=== PATIENT | male | born 1955 | race Caucasian/White ===

== ENCOUNTER → 2019-04-29 12:03 | Outpatient (CLI) | payer MEDICARE, SELFPAY ==
[2019-04-29 10:54] VITALS: BMI 43.2
[2019-04-29 13:45] LABS: Thyroid Stim Hormone (TSH) 1.65 uIU/mL (0.358-3.74)
== END ==
PROVIDERS: Family Provider Internal Medicine; PCP Internal Medicine; Referring Provider Internal Medicine Cardiovascular Disease; Visit Provider Internal Medicine Cardiovascular Disease
DX: I48.91 Unspecified atrial fibrillation (principal)
CPT/HCPCS: 36415; 84436; 84443

== ENCOUNTER → 2019-05-12 12:39 | Outpatient (CLI) | payer MEDICARE, SELFPAY ==
[2019-04-29 10:54] VITALS: BMI 43.2
--- NOTE | 2019-05-12 12:42 | ECHOCS_ITS ---
Reason For Study: Afib Procedure This was a 2D Doppler, Color Flow transthoracic echocardiogram. The study was technically difficult. Contrast injection was performed. Exam performed in department. Left Ventricle Normal size and thickness. The estimated ejection fraction is 65 %. Unable to assess diastolic dysfunction due to arrhythmia. No regional wall motion abnormalities noted. Right Ventricle Mildly dilated right ventricle. Normal systolic function. Atria Normal left atrium. Normal right atrium. Normal atrial septum. Mitral Valve The mitral valve is structurally normal. No prolapse or stenosis seen. Trivial mitral valve insufficiency. Tricuspid Valve Normal tricuspid valve. Trivial tricuspid valve insufficiency. Right ventricular systolic pressure estimated to be 36 mmHg. Mild pulmonary hypertension. Aortic Valve Normal aortic valve. Trisinus/trileaflet aortic valve. Pulmonic Valve The pulmonic valve is not well visualized. Great Vessels Normal aortic root. Normal arch. Normal inferior vena cava. Inferior vena cava collapse with sniff. Pericardium/Pleural No pericardial effusion. Medication 22 gauge I.V. with prn adaptor inserted into right arm. Diluted definity 4ml given slow IV push to enhance endocardial definition. MMode/2D Measurements & Calculations LVIDd: 4.3 cm IVSd: 1.2 cm LA dimension: 4.0 cm LVIDs: 3.0 cm LVPWd: 1.3 cm FS: 30.1 % LAV(MOD-bp): 60.2 ml LA A4 area: 20.2 cm2 LAV(MOD-bp) Indexed: 25.8 ml/m2 LAV(MOD-sp2): 63.4 ml LAV(MOD-sp4): 58.0 ml Time Measurements MV dec time: 0.17 sec Doppler Measurements & Calculations MV E max kacie: 82.5 cm/sec Ao V2 max: 82.3 cm/sec LV V1 max: 76.9 cm/sec MV A max kacie: 26.7 cm/sec Ao max P.7 mmHg LV V1 max P.4 mmHg MV E/A: 3.1 Ao V2 mean: 61.8 cm/sec LV V1 mean P.3 mmHg Ao mean P.6 mmHg LV V1 mean: 52.7 cm/sec Ao V2 VTI: 15.9 cm LV V1 VTI: 13.0 cm Interpretation Summary The estimated ejection fraction is 65 %. Unable to assess diastolic dysfunction due to arrhythmia. Mildly dilated right ventricle. Trivial mitral valve insufficiency. Trivial tricuspid valve insufficiency. Right ventricular systolic pressure estimated to be 36 mmHg. Mild pulmonary hypertension. Pt appears to be in atrial fibrillation. The study was technically difficult. Contrast injection was performed. There is no comparison study available. Ordering Physician: Yann Patrick Referring Physician: Lin Carbone Performed By: Gio Puentes RCS
== END ==
PROVIDERS: Family Provider Internal Medicine; PCP Internal Medicine; Referring Provider Internal Medicine Cardiovascular Disease; Visit Provider Internal Medicine Cardiovascular Disease
DX: Z01.810 Encounter for preprocedural cardiovascular examination (principal); I48.91 Unspecified atrial fibrillation; I27.20 Pulmonary hypertension, unspecified; I11.9 Hypertensive heart disease without heart failure; G47.33 Obstructive sleep apnea (adult) (pediatric)
CPT/HCPCS: 93306; Q9957; A4216; C8929

== ENCOUNTER → 2019-05-16 12:18 | Outpatient (CLI) | payer MEDICARE, SELFPAY ==
[2019-04-29 10:54] VITALS: BMI 43.2
--- NOTE | 2019-05-16 12:20 | STEWCON_ITS ---
Version 2 Reason For Study: AFIB/FLUTTER Stress Results Protocol: Dobutamine with definity Maximum Predicted HR: 154 bpm Target HR: 131 bpm % Maximum Predicted HR: 90 % DurationHeart Rate Stage (mm:ss) (bpm) BP Dose Comment BASELINE 116 139/100 2 CC DEFINITY STAGE 1 3:00 139 / 10.00 STAGE 2 1:24 134 149/7920.001 CC DEFINITY RECOVERY 112 126/82 2 CC DEFINITY Stress Duration: 4:24 mm:ss Maximum Stress HR: 139 bpm Baseline Echocardiogram Findings The estimated ejection fraction is 65 %. Stress Echo Wall motion Data Resting WM Intermediate WM Stress WM Resting Wall Motion Wall Motion Stress No regional wall motion No regional wall motion abnormalities noted. abnormalities noted. EKG Data The baseline ECG displays normal sinus rhythm. The patient exercised according to the regular Zechariah protocol for a total duration of 4:24. The maximum heart rate attained was 164 beats per minute. This was 106% of maximum predicted heart rate. The patient exercised into stage 2 of the Zechariah protocol. At peak exercise, upsloping ST changes only were noted, which did not meet the criteria for ischemia. No clinical angina was noted. Interpretation Summary The estimated ejection fraction is 65 %. Normal, adequate, dobutamine echocardiogram. Negative for ischemia by EKG and echocardiographic criteria. Baseline atrial fibrillation, with controlled ventricular response. No anginal symptoms noted. No additional arrhythmias noted. Final LVEF is 75%. Patient did develop subtle downsloping ST segment depression at peak exercise which persisted until 13 minutes 50 seconds into recovery. Decreased sensitivity due to poor echo windows requiring Definity agent. Test terminated due to attainment target heart rate. No complications. The study was technically difficult. Contrast injection was performed. Ordering Physician: Yann Patrick Referring Physician: Yann Patrick Performed By: Gio Puentes RCS
== END ==
PROVIDERS: Family Provider Internal Medicine; PCP Internal Medicine; Referring Provider Internal Medicine Cardiovascular Disease; Visit Provider Internal Medicine Cardiovascular Disease
DX: Z01.810 Encounter for preprocedural cardiovascular examination (principal); I48.91 Unspecified atrial fibrillation; I27.20 Pulmonary hypertension, unspecified; I11.9 Hypertensive heart disease without heart failure; G47.33 Obstructive sleep apnea (adult) (pediatric)
CPT/HCPCS: 93017; 93350; J7040; Q9957; A4216; C8928

== ENCOUNTER → 2019-11-11 09:20 | Outpatient (CLI) | payer MEDICARE, SELFPAY ==
[2019-11-07 10:17] VITALS: BMI 46.1
== END ==
PROVIDERS: PCP Internal Medicine; Referring Provider Internal Medicine Cardiovascular Disease; Visit Provider Internal Medicine Cardiovascular Disease
DX: I48.91 Unspecified atrial fibrillation (principal); R00.2 Palpitations
CPT/HCPCS: 93225; 93226

== ENCOUNTER → 2020-03-31 14:05 | Outpatient (CLI) | payer MEDICARE, SELFPAY ==
[2019-11-07 10:17] VITALS: BMI 46.1
--- NOTE | 2020-03-31 14:07 | US_ITS ---
STUDY: THYROID ULTRASOUND REASON FOR EXAM: Male, 65 years old. ENLARGED THYROID TECHNIQUE: Ultrasound evaluation of the thyroid was performed with real-time and static rosen-scale imaging. COMPARISON: None. FINDINGS: RIGHT LOBE: The right lobe of the thyroid gland measures 7.4 x 5 x 4.4 cm. There is a homogeneous echotexture. Solid and cystic nodule noted in the mid pole with irregular margins and intralobular nodular and perinodular DOPPLER vascularization. It measures 4.9 x 5 x 3.7 cm. LEFT LOBE: The left lobe of the thyroid gland measures 5.8 x 1.6 x 2.5 cm. There is a homogeneous echotexture. Multiple small solid regular isoechoic nodules are noted with perinodular vascularization. The largest measures 9 x 9 x 7 mm. Simple cystic lesion is noted lateral to the left lobe measuring 8 x 8 x 10 mm. ISTHMUS: The isthmus measures 0.3 cm . The regional lymph nodes are normal. US/Thyroid IMPRESSION: Multinodular thyroid goiter. Dominant nodule noted on the right. FNA recommended. Electronically Signed: Tariq Rodriguez MD at 21:49 EDT , Service support ,
== END ==
PROVIDERS: PCP Internal Medicine; Referring Provider Internal Medicine; Visit Provider Internal Medicine
DX: E04.2 Nontoxic multinodular goiter (principal)
CPT/HCPCS: 76536

== ENCOUNTER → 2020-04-15 | Outpatient (CLI) | payer MEDICARE, SELFPAY ==
[2020-04-15 13:45] VITALS: BMI 46.1
--- NOTE | 2020-04-15 14:00 | FLU_PTH ---
PATIENT: CHARMAINE LONG [facility] U#:[id number] AGE/SX: 65/M ROOM: RE04/15/[address]: Dr. Yann Stevens MD : 1955 BED: DIS: 04/15/2020 SPEC #: [id number] RECD: 04/16/20 07:10 STATUS: OMERO NICOLE #: [id number] KEREN: 04/15/20 14:[address]: Yann Stevens DEPT: CYTOLOGY RECD BY: Adilson Mauricio ENTERED: 04/16/20 12:39 SP TYPE: Fluid OTHR DR: Dr. Lin Carbone MD Tissues: A - Thyroid gland, NOS B - Thyroid gland, NOS Procedures: Special Stain Group II Cytospin Fluid HEADER OPERATION: Ultrasound-guided fine needle aspiration right thyroid PRE-OP DIAGNOSIS: Multinodular goiter TISSUE SUBMITTED: A - Right thyroid fluid for cytology, B - Right thyroid FNA slides x12 DIAGNOSIS CYTOLOGY A. Right thyroid nodule fluid for cytology, ultrasound-guided FNA (cytospin and cell block): A few benign follicular cells and scant colloid is noted. B. 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 Adequate for evaluation. See comment. ROSALINDA:laci 04/19/20 COMMENT Correlation with clinical, radiologic findings and appropriate follow up are necessary. CYTOLOGY STUDY Slides are reviewed. CYTOLOGY GROSS A - Received is 3 ml of brown cloudy fluid labeled with the patient's name and and designated per the requisition as right thyroid. Submitted for cytology preparation including cell block. B - Received are 12 smears labeled with the patient's name and designated per the requisition as right thyroid. Submitted for staining. / laci 04/16/20 TC:5 CPT: 99325, 10354, 01754
== END | disposition home or self-care (01) ==
LOC: LABSPEC 04-16 08:35
PROVIDERS: PCP Internal Medicine; Referring Provider Surgery; Visit Provider Surgery
DX: E04.2 Nontoxic multinodular goiter (principal)
CPT/HCPCS: 88108; 88313

== ENCOUNTER 2020-04-26 06:04 | Day surgery (SDC) | payer MEDICARE, SELFPAY ==
[2020-04-07 14:07] VITALS: BMI 46.1
--- NOTE | 2020-04-08 01:59 | HP_ITS ---
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 Is patient in pain?: No Allergies atorvastatin Adverse Reaction (Intermediate, Verified 04/07/20 14:05) Myalgias Medications Irbesartan [Avapro] 300 mg PO DAILY 03/13/17 [History Confirmed 04/07/20] Rivaroxaban [Xarelto] 20 mg PO DAILY 03/13/17 [History Confirmed 04/07/20] glucosamine sulfate 1,000 mg capsule 1,000 mg PO BID 04/23/19 [History Confirmed 04/07/20] metoprolol tartrate 25 mg tablet 25 mg PO BID 04/23/19 [History Confirmed 04/07/20] spironolactone 25 mg tablet 25 mg PO DAILY 04/23/19 [History Confirmed 04/07/20] sildenafil 50 mg tablet 50 mg PO DAILY PRN 11/04/19 [History Confirmed 04/07/20] tramadol 50 mg tablet 50 mg PO BID PRN tab 11/04/19 [History Confirmed 04/07/20] Handicap Parking Placard #1 ea 01/26/20 [Rx Confirmed 04/07/20] rosuvastatin 10 mg tablet 10 mg PO DAILY #30 tab 04/05/20 [Rx Confirmed 04/07/20] [facility] Medical History Pre-operative cardiovascular examination (Acute) Atrial fibrillation (Chronic) Left ventricular dysfunction (Resolved) Pulmonary hypertension (Ruled-out) Essential hypertension (Chronic) Obstructive sleep apnea (Chronic) Hyperlipidemia (Chronic) Osteoarthritis of hips, bilateral (Chronic) Surgical History History of left heart catheterization (Chronic 2002) History of cardioversion (Chronic 03/14/17) History of cataract extraction with lens replacement (Chronic ~2011) History of cholecystectomy (Chronic 03/04/14) History of retinal tear (Chronic) History of vitrectomy (Chronic 01/05/15) Hx of detached retina repair (Chronic 05/23/13) Status post panniculectomy (Chronic) Family History Mother Dementia Father Prostate cancer CAD (coronary artery disease) Brain bleed Hemorrhagic CVA Heart disease Hypertension Thyroid disorder Uncle CVA (cerebral vascular accident) Brother Diabetes Cancer prostate Social History (Updated 04/08/20 @ 14:[address] Yann Stevens MD) Smoking Status: Former smoker HPI HPI Surgical H&P: Yes HPI: CHARMAINE LONG, is a 65 M who presents to the office today for Evaluation of multinodular goiter. Patient recently had a thyroid ultrasound done at [facility] on 03/31/2020 this showed a 4.9 x 5 x 3.7 cm nodule on the right thyroid lobe. The left lobe had smaller subcentimeter lesions identified. Patient identified this mass when he was showering and palpated it he has no history of thyroid disease in the past he has no family history of thyroid disease. Patient is not having any difficulty swallowing he has no history of exposure to radiation. ROS General General: Yes weight change and fatigue; no appetite, colon cancer, breast cancer or weakness HEENT HEENT: Yes difficulty swallowing, eye injury and swollen glands; no eye surgery or hoarseness Endo Endocrine: Yes diabetes mellitus; no thyroid disease, thyroid cancer, Hair loss, heat intolerance or cold intolerance Musc Musculoskeletal: Yes back problems, arthritis and gout; no rheumatoid arthritis or joint pain Cardio Cardiovascular: Yes atrial fibrillation and high blood pressure; no murmur, pacemaker, heart disease, heart attack, heart stent, palpitations, shortness of breat with exertion or chest pain Psych Psychiatric: No depression, anxiety or hearing voices Resp Respiratory: Yes shortness of breath, Yes sleep apnea, No cough, No COPD, No asthma, No emphysema, No wheezing Gastro Gastrointestinal: No abdominal pain, No nausea or vomiting, Yes diarrhea, No constipation, No blood in stool, No acid reflux, No hemorrhoids, No ulcers, No gallbladder problem, No black,tarry stools Tomi Hematologic: Yes blood thinners, No blood disorders, No bleeding, No anemia, No blood clots Neuro Neurologic: No weakness Exam Const General: no acute distress, well developed, well hydrated Orientation: oriented to person, oriented to place, oriented to time [facility] Head: normocephalic, atraumatic Ears: external ears normal Mouth: moist mucous membranes Other: Thyroid Exam: Very large right thyroid lobe is identified. No hard palpable nodules are identified no lymphadenopathy bilaterally is palpated Eyes Sclera: sclerae normal Pupils: normal by confrontation Neck Neck: no lymphadenopathy noted Neck mass: No Thyroid: thyroid normal, symmetrical Chest Chest palpation & inspection: normal inspection of the chest Resp Effort & Inspection: normal respiratory effort Auscultation: clear to auscultation bilaterally Percussion: percussion normal Cardio Rate: regular rate Rhythm: regular rhythm Heart Sounds: no murmurs GI Palpation: soft, no hepatosplenomegaly, no masses, nontender Rectal Exam: other Other: Rectal exam deferred. Extrem General: normal to inspection, no clubbing, cyanosis or edema Assessment & Plan Problems 1. Multinodular goiter (nontoxic) E04.2 Plan My plan is to first perform a fine-needle aspiration of the right thyroid gland. If this is benign then I will perform a right-sided thyroid lobectomy if however the fine-needle aspiration is suspicious for papillary thyroid cancer I will do a total thyroidectomy. We discussed the risks and benefits of the planned procedure. I have informed the patient that complications can occur including failure to complete the procedure. The patient had the opportunity to ask questions concerning the planned procedure. My staff has also explained the procedure to the patient in understandable terms and has given the patient printed material concerning the procedure. The patient freely consents to the procedure. Patient understands it there is a possible injury to the parathyroid glands as well as the recurrent laryngeal nerve. Coding Level of Care Code Off vis,new,level 3 Diagnoses Multinodular goiter (nontoxic) E04.2 COVID (Procedure Consent) Procedure Criteria Procedure Criteria: Yes Elective The surgeon/proceduralist and patient have discussed in detail the risk of exposure to and/or potential harm posed by the COVID-19 virus with having a surgery/procedure at this time versus the risk of? delaying the surgery/procedure. It is not possible to know either the risk of delaying the surgery or procedure or chance of getting an infection with perfect accuracy, but a joint decision was made between the patient and the surgeon/proceduralist ?to proceed at this time with the scheduled surgery/procedure as indicated on the consent form. 04/08/20 1400 <Electronically signed by Yann mensah MD> Date _ Yann Stevens MD I have re-examined the patient. There are no clinical changes since date of exam.
[2020-04-15 13:45] VITALS: BMI 46.1
[2020-04-19 15:15] LABS: Absolute Lymphocyte Count 1.32 X10^3/uL (0.83-4.51); Absolute Neutrophil Count 4.4 X10^3/uL (2.0-7.7); Basophil# 0.04 X10^3/uL; Basophil% 0.6 % (0-1); Eosinophils% 1.5 % (0-5); Hematocrit 45.8 % (40-54); Hemoglobin 14.1 g/dL (13.0-16.5); Lymphocyte # 1.32 X10^3/ul (4.0); Lymphocyte % 20.4 % (19-41); Mean Corp Hgb Conc 30.8 g/dL (32-36); Mean Corpuscular Volume 97.4 fL (80-94); Mean Platelet Vol. 9.8 fl (6.2-12.0); Monocyte# 0.59 X10^3/uL; Monocyte% 9.1 % (0-10); NRBC Flagged by Analyzer 0 % (0-5); Neutrophil % 68.1 % (47-70); Platelet Count 222 K/mm3 (150-450); RBC Distribution Width SD 50.7 fl (35.1-43.9); White Blood Count 6.5 K/mm3 (4.4-11.0)
[2020-04-19 15:54] LABS: Anion Gap 5 (5-15); BUN 40 mg/dL (7-18); BUN/Creat Ratio 19.8 RATIO (10-20); Calcium,Total 9.2 mg/dL (8.5-10.1); Chloride 110 mmol/L (98-107); Creatinine, Serum 2.02 mg/dL (0.70-1.30); EST Glomerular Filtration Rate 35 mL/min (>60); Est Glom Filt Rate - Afr Amer 43 mL/min (>60); Glucose 92 mg/dL (74-106); Potassium 5.6 mmol/L (3.5-5.1); Sodium Level 137 mmol/L (136-145)
[2020-04-26] VITALS (14 sets, daily range): BP systolic 99–146; BP diastolic 65–88; PULSE 71–98; RESP 16–20; TEMP 35.7–36.9; O2SAT 95–100; BMI 53.6
--- NOTE | 2020-04-26 | THYROID_PTH ---
PATIENT: CHARMAINE LONG LOC: [facility] [place] U#:[id number] AGE/SX: 65/M ROOM: RE04/26/[address]: Dr. Yann Stevens MD : 1955 BED: DIS: 04/27/2020 SPEC #: [id number] RECD: 04/26/20 09:06 STATUS: OMERO NICOLE #: [id number] KEREN: 04/26/20 00:[address]: Yann Stevens DEPT: SURGICAL PATHOLOGY RECD BY: Anabel Rios ENTERED: 04/26/20 10:43 SP TYPE: THYROID OTHR DR: Dr. Lin Carbone MD Tissues: Thyroid gland, NOS Procedures: Frozen Section (charge) Frozen Section Add'l ([facility]) Surgery Specimen Level V HEADER OPERATION: Thyroid lobectomy PRE-OP DIAGNOSIS: Multinodular goiter TISSUE SUBMITTED: Right thyroid, frozen section FROZEN SECTION DIAGNOSIS Right thyroid, lobectomy: Multinodular goiter. SJ:laci 04/26/20 MICROSCOPIC DIAGNOSIS Right thyroid, lobectomy: Multinodular goiter. Focal chronic inflammation. See comment. ROSALINDA:laci 04/27/20 COMMENT The largest nodule measures 6 cm in greatest dimension and shows extensive cystic changes and Hurthle cell features. Please make reference to previous specimen ([id number]) right thyroid nodule, ultrasound-guided FNA with diagnosis of consistent with benign follicular/colloid nodule with focal Hurthle cell features. MICROSCOPIC DESCRIPTION Slides are reviewed. GROSS DESCRIPTION Received fresh for frozen section diagnosis labeled with the patient's name is a specimen designated right thyroid. The specimen consists of a thyroid lobectomy specimen weighing 67.3 gm. The right lobe measures 8 x 6 x 4 cm and isthmus measures 2 x 1.5 x 0.5 cm. The specimen is inked as follows: isthmic margin - yellow, anterior surface - blue, posterior surface - black. Serial sections reveal a cystic, solid nodule measuring 6 x 4 x 2 cm. Two frozen sections are done containing nodule with surround tissue. An additional round nodule is also noted measuring 1.2 cm in greatest dimension. Attendant Honor Bar sections are submitted in 17 cassettes as follows: 1 & 2 - frozen section, solid, cystic nodule with surrounding tissue, 3 & 4 - isthmus, entirely submitted, 5-17 - data entry representative sections right lobe thyroid (cassette 14 contains the smaller nodule, entirely submitted; 5 - containing most superior portion and 17 containing most inferior portion). / ROSALINDA:laci 04/26/20 TC:5 CPT: 99097, 91940, 28520
[2020-04-26] MEDS: Lactated Ringers 1,000 ML 100 ML IV (06:59)
[2020-04-26 07:49] LABS: Creatinine, Serum 1.77 mg/dL (0.70-1.30); EST Glomerular Filtration Rate 41 mL/min (>60); Est Glom Filt Rate - Afr Amer 50 mL/min (>60); Estimated Creatinine Clearance 37.86 ml/min; Potassium 4.9 mmol/L (3.5-5.1)
[2020-04-26] MEDS: Cefazolin 2 GM in 0.9% Normal Saline 100 ML IV (08:19)
--- NOTE | 2020-04-26 09:08 | PCM.OPRPT ---
Problem List (1) Multinodular goiter Status: Acute Report of Operation Date of Procedure: 04/26/20 Pre-Operative Diagnosis: Multinodular goiter Post-Operative Diagnosis: Same Surgery/Procedure Performed:: Right thyroid lobectomy and isthmusectomy Type of Anesthesia:: General Anesthesiologist: Jonny Rocha Estimated Blood Loss (mL): < 25 cc Fluids Replaced: 1200 cc lr Description of Procedure: Patient was brought into the operating room. Placed in the supine position. Under excellent general trach intubation towel was placed underneath the shoulder blades and neck was extended. The neck upper chest area was sterilely prepped and draped in usual fashion. Local was injected. Cervical incision was made. Electrocautery was used to go through the platysma subplatysmal flaps were created with use of electrocautery. Gelpi retractor was placed inside the wound. Midline strap muscles were opened. It was very apparent very quickly that I was not going to be able to get this right side of his thyroid out unless I cut his strap muscles he is a harmonic dissector and cut his strap muscles without difficulty. This allowed me access to the superior pole vessels which I was able to take down with her augustina dissector I came down to the middle thyroidal vein took this down with her augustina dissector and finally the inferior thyroid vessels with her augustina dissector. I dissected from a lateral to medial standpoint rotating the gland came down to Nicko's ligament took these down with her augustina dissector and finally detached the thyroid from the left side via the isthmus with a harmonic dissector I inspected the gland I saw nothing that appeared or look like parathyroid tissue. I sent the tissue off for a quick frozen section. I inspected my wound base good pneumostasis was noted. I placed a piece of fluffy Surgicel into the wound. I brought the strap muscles together with 0 Vicryl midline strap muscles were brought together with a 2-0 Vicryl. Platysma was brought together with a 3-0 Vicryl. Exparel was injected in the subcutaneous tissues. Skin was brought together with 4-0 Monocryl. Dermabond was applied. Sterile dressings were applied. The patient tolerated the procedure well. Frozen section came back and was consistent with - Admit VTE Documentation VTE Present on Admission: No VTE Mechan Device Prophylaxis: SCD's VTE Pharm Prophylaxis ordered?: No Reason prophylaxis not ordered:: Treatment Not Indicated CF Procedures [id number]: Other Procedure See Report - [id number]
[2020-04-26] MEDS: BUPIVACAINE LIPOSOME/PF 20 ML VIAL OPERA.SITE (09:15)
[2020-04-26] MEDS: 0.9% Saline Lock 10 ML Syringe IV ×2 (11:24→11:42)
[2020-04-26] MEDS: 0.9% Normal Saline 1,000 ML 50 ML IV (11:40)
[2020-04-26] MEDS: HYDROmorphone 0.5 MG/0.5 ML SYRINGE IV (11:42)
[2020-04-26] MEDS: Spironolactone 25 MG Tablet PO (13:30)
[2020-04-26] MEDS: oxyCODONE 5 MG Tablet PO ×4 (14:32→23:08)
[2020-04-26] MEDS: Metoprolol Tartrate 25 MG Tablet PO (19:50)
--- NOTE | 2020-04-26 19:52 | NURSING ---
Patient requested pm meds early
[2020-04-27 03:30] VITALS: BP 104/69; PULSE 81; RESP 18; TEMP 36.9; O2SAT 97
[2020-04-27] MEDS: oxyCODONE 5 MG Tablet PO ×2 (03:40→09:36)
[2020-04-27] MEDS: 0.9% Normal Saline 1,000 ML 50 ML IV (05:27)
[2020-04-27 06:44] LABS: Absolute Lymphocyte Count 1.36 X10^3/uL (0.83-4.51); Absolute Neutrophil Count 5.4 X10^3/uL (2.0-7.7); Basophil# 0.03 X10^3/uL; Basophil% 0.4 % (0-1); Eosinophil# 0.07 X10^3/uL; Eosinophils% 0.9 % (0-5); Hematocrit 40.7 % (40-54); Hemoglobin 12.7 g/dL (13.0-16.5); Lymphocyte # 1.36 X10^3/ul (4.0); Mean Corp Hgb Conc 31.2 g/dL (32-36); Mean Corpuscular Hgb 30.4 pg (27.0-32.0); Mean Corpuscular Volume 97.4 fL (80-94); Mean Platelet Vol. 9.7 fl (6.2-12.0); Monocyte# 0.65 X10^3/uL; Monocyte% 8.6 % (0-10); NRBC Flagged by Analyzer 0 % (0-5); Neutrophil # 5.42 X10^3/uL (2.7-7.7); Neutrophil % 71.6 % (47-70); Platelet Count 182 K/mm3 (150-450); RBC Distribution Width CV 13.9 % (11.6-14.6); RBC Distribution Width SD 49.6 fl (35.1-43.9); Red Blood Count 4.18 M/mm3 (4.6-6.2); White Blood Count 7.6 K/mm3 (4.4-11.0)
[2020-04-27 07:04] LABS: Anion Gap 4 (5-15); BUN 30 mg/dL (7-18); BUN/Creat Ratio 18.8 RATIO (10-20); Calcium,Total 8.3 mg/dL (8.5-10.1); Chloride 109 mmol/L (98-107); EST Glomerular Filtration Rate 46 mL/min (>60); Est Glom Filt Rate - Afr Amer 56 mL/min (>60); Estimated Creatinine Clearance 41.89 ml/min; Glucose 113 mg/dL (74-106); Potassium 4.9 mmol/L (3.5-5.1); Sodium Level 137 mmol/L (136-145)
--- NOTE | 2020-04-27 09:28 | DCINST_ITS ---
Discharge Diet: Light diet - advance as tolerated - If you have questions about your diet instructions, please talk to your doctor. Discharge Activity: May Not Drive - for 1 week or while taking narcotic pain medicine. May shower in (days): 1 Lifting Restrictions: 10 pounds Call your doctor if your incision/area has: Continuous Slow Oozing, Sudden Increased Bleeding, Increased Pain/ Swelling, Increased Redness, Foul Smelling Discharge Call your doctor if you observe: Fever of 101 or Higher Suture Line Care: Avoid Pulling/Pushing, Avoid Pinching/Bending Additional Dressing/Incision Instructions:: Change or remove dressing in 4 days. Leave steri-strips in place for 1 week. Allergies/Adverse Reactions: Allergies atorvastatin Adverse Reaction (Intermediate, Verified 04/16/20 14:04) Myalgias Medications to take at Discharge Irbesartan [Avapro] 300 mg PO DAILY 03/13/17 Rivaroxaban [Xarelto] 20 mg PO DAILY 03/13/17 metoprolol tartrate 25 mg tablet 25 mg PO BID 04/23/19 spironolactone 25 mg tablet 25 mg PO DAILY 04/23/19 sildenafil 50 mg tablet 50 mg PO DAILY PRN 11/04/19 tramadol 50 mg tablet 50 mg PO BID PRN tab 11/04/19 Handicap Parking Placard #1 ea 01/26/20 rosuvastatin 10 mg tablet 10 mg PO DAILY #30 tab 04/05/20 Oxycodone HCl/Acetaminophen [Percocet 5/325] 1 - 2 tablet PO Q4H PRN PRN 6 Days #30 tablet 04/27/20 The following prescriptions were given: Oxycodone HCl/Acetaminophen [Percocet 5/325] 1 - 2 tablet PO Q4H PRN PRN 6 Days #30 tablet PRN Reason: Pain Transmission Status: Sent to [facility] Primary Care Physician: Lin Carbone MD [Primary Care Provider] - Test Results: Test results from this visit will be discussed in further detail at your follow- up appointment, if applicable. Please Follow Up With: Yann Stevens MD - [phone] When: Call to make an appointment to be seen in about 10 days.
[2020-04-27 09:31] VITALS: BP 119/78; PULSE 88; RESP 18; TEMP 37.1; O2SAT 98
[2020-04-27 09:36] VITALS: PULSE 88
[2020-04-27] MEDS: Metoprolol Tartrate 25 MG Tablet PO (09:36)
[2020-04-27] MEDS: Spironolactone 25 MG Tablet PO (09:37)
[2020-04-27] MEDS: Losartan Potassium 100 MG Tablet PO (09:37)
--- NOTE | 2020-04-27 11:26 | PHA.DC.MC ---
Pharmacy Service has performed discharge medication reconciliation and counseling for this patient. 1. OXYCODONE/ACETAMINOPHEN 5/325MG 1-2T PO Q4H PRN PAIN X 6 DAYS The patient's discharge medication list was reviewed for discrepancies and discrepancies were resolved. Spoke with patient regarding tramadol. Advised him to avoid taking tramadol and Percocet concurrently. Home Medications Irbesartan [Avapro] 300 mg PO DAILY 03/13/17 Rivaroxaban [Xarelto] 20 mg PO DAILY 03/13/17 metoprolol tartrate 25 mg tablet 25 mg PO BID 04/23/19 spironolactone 25 mg tablet 25 mg PO DAILY 04/23/19 sildenafil 50 mg tablet 50 mg PO DAILY PRN 11/04/19 tramadol 50 mg tablet 50 mg PO BID PRN tab 11/04/19 Handicap Parking Placard #1 ea 01/26/20 rosuvastatin 10 mg tablet 10 mg PO DAILY #30 tab 04/05/20 Oxycodone HCl/Acetaminophen [Percocet 5/325] 1 - 2 tab PO Q4H PRN PRN 6 Days #30 tab 04/27/20 The patient was counseled on the following discharge medications and changes in medications for homegoing were reviewed. The Reason for Use, instructions for use, and potential side effects were reviewed for all new medications. The patient's questions regarding all of their medications were answered. The patient was able to verbally demonstrate an understanding of their discharge medications. Patient counseled by pharmacy innovation assistant, Elly.
== END 2020-04-27 12:10 | disposition home or self-care (01) ==
LOC: SDC 06:04 → AC 06:05 → MS3 09:29
PROVIDERS: Anesthesiology; PCP Internal Medicine; Referring Provider Surgery; Visit Provider Surgery
PROC: (CPT 60220; principal; 2020-04-26 07:15)
DX: E04.2 Nontoxic multinodular goiter (principal); I48.91 Unspecified atrial fibrillation; I10 Essential (primary) hypertension; E78.00 Pure hypercholesterolemia, unspecified; M16.0 Bilateral primary osteoarthritis of hip; G47.33 Obstructive sleep apnea (adult) (pediatric); Z71.3 Dietary counseling and surveillance; Z68.42 Body mass index [BMI] 45.0-49.9, adult; Z79.01 Long term (current) use of anticoagulants; Z79.899 Other long term (current) drug therapy; Z87.891 Personal history of nicotine dependence; Z11.59 Encounter for screening for other viral diseases
CPT/HCPCS: 00320; 60220; 36415; 80048; 82565; 84132; 85025; 87635; 88307; 88331; 88332; 97802; 99251; 99406; C9803; J7030; J7120; A4216; G0463; J2405; U0003

== ENCOUNTER → 2020-07-12 15:47 | Outpatient (CLI) | payer MEDICARE, SELFPAY ==
[2020-04-26 11:12] VITALS: BMI 53.6
--- NOTE | 2020-07-12 16:05 | RAD_ITS ---
STUDY: X-RAY - PELVIS AND BILATERAL HIPS REASON FOR EXAM: Male, 65 years old. Low back pain radiating to both hips. Arthritis. TECHNIQUE: AP view of the pelvis, 2 images.? 2 views of the right hip, and 2 views of the left hip were obtained. COMPARISON: None. FINDINGS: There is a non-specific bowel gas pattern. Normal visualized soft tissue structures. Normal bilateral iliac wings, sacroiliac joints and visualized sacrum. Normal bilateral superior and inferior pubic rami. Normal pubic symphysis. Normal bilateral ischial tuberosities. Severe degenerative changes of both hips with obliteration of the joint space and marked osteophytosis. Flattening of the femoral head bilaterally. Degenerative changes of the lower lumbar spine. RAD/Hips B/L min 2 views w/ Pelvis IMPRESSION: Severe degenerative changes of both hips. No fracture identified. Electronically Signed: Josiah Naik MD at 4:10 EST , Service support ,
== END ==
PROVIDERS: PCP Internal Medicine; Referring Provider Anesthesiology Pain Medicine; Visit Provider Anesthesiology Pain Medicine
DX: M16.0 Bilateral primary osteoarthritis of hip (principal)
CPT/HCPCS: 73521

== ENCOUNTER → 2020-08-09 15:53 | Outpatient (CLI) | payer MEDICARE, SELFPAY ==
[2020-04-26 11:12] VITALS: BMI 53.6
[2020-08-09 18:00] LABS: Amphetamine Urine VISTA NEGATIVE (<1000 ng/mL); Barbiturate Urine VISTA NEGATIVE (< 200 ng/mL); Benzodiazepine Urine VISTA NEGATIVE (< 200 ng/mL); Cocaine Urine VISTA NEGATIVE (< 300 ng/mL); Ecstacy Urine VISTA NEGATIVE (< 500 ng/mL); Methadone Urine VISTA NEGATIVE (< 300 ng/mL); PCP Urine VISTA NEGATIVE (< 25 ng/mL); THC Urine VISTA NEGATIVE (< 50 ng/mL); Vista UDS pH Range 5
== END ==
PROVIDERS: PCP Internal Medicine; Visit Provider Anesthesiology Pain Medicine
DX: F11.20 Opioid dependence, uncomplicated (principal)
CPT/HCPCS: 80307

== ENCOUNTER → 2020-09-08 15:57 | Outpatient (CLI) | payer MEDICARE, SELFPAY ==
[2020-09-07 07:50] VITALS: BMI 46.1
[2020-09-08 18:28] LABS: Hematocrit 45.3 % (40-54); Hemoglobin 14.2 g/dL (13.0-16.5); Mean Corp Hgb Conc 31.3 g/dL (32-36); Mean Corpuscular Hgb 30.3 pg (27.0-32.0); Mean Corpuscular Volume 96.8 fL (80-94); Mean Platelet Vol. 10.1 fl (6.2-12.0); Platelet Count 200 K/mm3 (150-450); RBC Distribution Width CV 14.7 % (11.6-14.6); RBC Distribution Width SD 52.1 fl (35.1-43.9); Red Blood Count 4.68 M/mm3 (4.6-6.2); White Blood Count 6.4 K/mm3 (4.4-11.0)
[2020-09-08 18:40] LABS: Microalbumin,Random Urine 20.1 mg/L (NO RANGE EST.); Microalbumin:Creatinine Ratio 27.4 mg/g CRE (<30 mg/g CRE)
[2020-09-08 18:53] LABS: Anion Gap 7 (5-15); BUN 30 mg/dL (7-18); BUN/Creat Ratio 20.3 RATIO (10-20); Calcium,Total 9.6 mg/dL (8.5-10.1); Chloride 104 mmol/L (98-107); Creatinine, Serum 1.48 mg/dL (0.70-1.30); EST Glomerular Filtration Rate 50 mL/min (>60); Est Glom Filt Rate - Afr Amer 61 mL/min (>60); Glucose 80 mg/dL (74-106); Potassium 4.8 mmol/L (3.5-5.1); Sodium Level 136 mmol/L (136-145)
[2020-09-08 19:05] LABS: Hemoglobin A1c 5.4 % (3.8-5.6)
== END ==
PROVIDERS: PCP Internal Medicine; Visit Provider Internal Medicine
DX: E11.22 Type 2 diabetes mellitus with diabetic chronic kidney disease (principal); N18.30 Chronic kidney disease, stage 3 unspecified
CPT/HCPCS: 36415; 80048; 82043; 82570; 83036; 85027

== ENCOUNTER → 2021-03-23 13:33 | Outpatient (CLI) | payer MEDICARE, SELFPAY ==
--- NOTE | 2021-03-23 13:45 | RAD_ITS ---
STUDY: X-RAY - PELVIS AND BILATERAL HIPS REASON FOR EXAM: Male, 66 years old. Hip pain. TECHNIQUE: AP view of the pelvis.? 2 views of the right hip, and 2 views of the left hip were obtained. COMPARISON: 07/12/2020. FINDINGS: There is a non-specific bowel gas pattern. Normal visualized soft tissue structures. Osteopenia. Stable arthrosis of the sacroiliac joints. Normal bilateral superior and inferior pubic rami. Stable arthrosis of the symphysis pubis. Normal bilateral ischial tuberosities. Severe osteoarthritic changes of both hips with marked osteophyte formation. RAD/Hips B/L min 2 views w/ Pelvis IMPRESSION: Stable osteopenia with mild arthrosis of the sacroiliac joints and symphysis pubis. Severe osteoarthritic changes of both hips, relatively unchanged. No acute abnormality or erosive changes. Electronically Signed: Brian Fajardo MD at 12:27 EDT , Service support ,
== END ==
PROVIDERS: PCP Internal Medicine; Referring Provider Anesthesiology Pain Medicine; Visit Provider Anesthesiology Pain Medicine
DX: M16.0 Bilateral primary osteoarthritis of hip (principal); M85.89 Other specified disorders of bone density and structure, multiple sites
CPT/HCPCS: 73521

== ENCOUNTER → 2021-04-20 12:19 | Outpatient (CLI) | payer MEDICARE, SELFPAY ==
[2021-04-20 13:59] LABS: Hemoglobin A1c 5.6 % (3.8-5.6)
[2021-04-20 14:24] LABS: Cholesterol 157 mg/dL (200); High Density Lipoprotein 53 mg/dL; Thyroid Stim Hormone (TSH) 2.18 uIU/mL (0.358-3.74); Triglycerides 82 mg/dL; Uric Acid 8.1 mg/dL (3.5-7.2); Very Low Density Lipoprotein 16 mg/dL (5-40)
== END ==
PROVIDERS: PCP Internal Medicine; Referring Provider Internal Medicine; Visit Provider Internal Medicine
DX: Z13.1 Encounter for screening for diabetes mellitus (principal); E78.2 Mixed hyperlipidemia; E07.9 Disorder of thyroid, unspecified; M10.9 Gout, unspecified; E11.22 Type 2 diabetes mellitus with diabetic chronic kidney disease; N18.30 Chronic kidney disease, stage 3 unspecified
CPT/HCPCS: 36415; 80061; 83036; 84443; 84550

== ENCOUNTER → 2021-05-16 13:38 | Outpatient (CLI) | payer MEDICARE, SELFPAY ==
[2021-05-16 15:07] LABS: Amphetamine Urine VISTA NEGATIVE (<1000 ng/mL); Barbiturate Urine VISTA NEGATIVE (< 200 ng/mL); Benzodiazepine Urine VISTA NEGATIVE (< 200 ng/mL); Cocaine Urine VISTA NEGATIVE (< 300 ng/mL); Ecstacy Urine VISTA NEGATIVE (< 500 ng/mL); Methadone Urine VISTA NEGATIVE (< 300 ng/mL); PCP Urine VISTA NEGATIVE (< 25 ng/mL); THC Urine VISTA NEGATIVE (< 50 ng/mL); Vista UDS pH Range 6
== END ==
PROVIDERS: PCP Internal Medicine; Visit Provider Anesthesiology Pain Medicine
DX: F11.20 Opioid dependence, uncomplicated (principal)
CPT/HCPCS: 80307

== ENCOUNTER 2021-10-13 10:51 | Outpatient (CLI) | payer MEDICARE, SELFPAY ==
--- NOTE | 2021-10-13 11:10 | RAD_ITS ---
STUDY: X-RAY CHEST REASON FOR EXAM: Male, 66 years old. Cough with fever and shortness of breath. TECHNIQUE: Frontal and lateral views of the chest. COMPARISON: None. FINDINGS: The lungs are clear and expanded. There is no demonstrated pleural abnormality. Normal size heart. Normal mediastinum and avelino. Normal visualized pulmonary arteries. Normal visualized aortic arch and descending thoracic aorta. Normal visualized thoracic spine. Normal visualized ribs, clavicles, and shoulders. There is no demonstrated abnormality of the visualized soft tissue structures of the upper abdomen. RAD/Chest PA and Lateral IMPRESSION: Normal x-ray examination of the chest. Electronically Signed: Brian Fajardo MD at 13:58 EST ,
== END 2021-10-13 23:59 | disposition home or self-care (01) ==
LOC: RAD 10:55
PROVIDERS: PCP Internal Medicine; Referring Provider Internal Medicine; Visit Provider Internal Medicine
DX: R06.02 Shortness of breath (principal); R05.8 Other specified cough
CPT/HCPCS: 71046

== ENCOUNTER → 2021-12-29 | Outpatient (CLI) | payer MEDICARE, SELFPAY ==
[2021-12-29 16:53] LABS: Amphetamine Urine VISTA NEGATIVE (<1000 ng/mL); Barbiturate Urine VISTA NEGATIVE (< 200 ng/mL); Benzodiazepine Urine VISTA NEGATIVE (< 200 ng/mL); Cocaine Urine VISTA NEGATIVE (< 300 ng/mL); Ecstacy Urine VISTA NEGATIVE (< 500 ng/mL); Methadone Urine VISTA NEGATIVE (< 300 ng/mL); PCP Urine VISTA NEGATIVE (< 25 ng/mL); THC Urine VISTA NEGATIVE (< 50 ng/mL); Vista UDS pH Range 4
== END | disposition home or self-care (01) ==
LOC: LAB 14:51
PROVIDERS: PCP Internal Medicine; Referring Provider Anesthesiology Pain Medicine; Visit Provider Anesthesiology Pain Medicine
DX: F11.20 Opioid dependence, uncomplicated (principal)
CPT/HCPCS: 80307

== ENCOUNTER → 2022-11-07 | Outpatient (CLI) | payer MEDICARE, SELFPAY ==
--- NOTE | 2022-11-07 12:34 | RAD_ITS ---
INDICATION: UPPER RESPIRATORY TRACT INFECTION EXAMINATION/TECHNIQUE: X-RAY - XR Chest 2 Views COMPARISON: 10/13/2021 chest radiograph. Findings: Frontal and lateral views of the chest. LUNG PARENCHYMA: No acute focal airspace disease or mass lesion. PLEURA: No pleural effusion. No pneumothorax. HEART/GREAT VESSELS: Cardiomediastinal silhouette is unremarkable. BONES: Osseous structures are unremarkable for age. RAD/Chest PA and Lateral IMPRESSION: Stable chest with no acute disease. Electronically Signed: Brendan Lara MD at 6:53 EDT ,
== END | disposition home or self-care (01) ==
LOC: RAD 12:29
PROVIDERS: PCP Internal Medicine; Visit Provider Internal Medicine
DX: J06.9 Acute upper respiratory infection, unspecified (principal)
CPT/HCPCS: 71046

== ENCOUNTER → 2023-06-14 | Outpatient (CLI) | payer MEDICARE, SELFPAY ==
--- NOTE | 2023-06-14 07:50 | ECHOCS_ITS ---
Reason For Study: ATRIAL FIBRILLATION Procedure This was a 2D Doppler, Color Flow transthoracic echocardiogram. The study was technically difficult. Due to body habitus. Contrast injection was performed. Exam performed in department. Left Ventricle Normal LV size. The estimated ejection fraction is 65 %. Unable to assess diastolic dysfunction. No regional wall motion abnormalities noted. Right Ventricle Not well-visualized. Atria The left atrium is mildly enlarged. Not well-visualized. Mitral Valve No mitral valve insufficiency. Tricuspid Valve Unable to estimate RV systolic pressure due to inadequate jet, pulmonary artery pressure probably normal. Aortic Valve The aortic valve is not well visualized. There is no aortic stenosis. No aortic valve insufficiency. Pulmonic Valve The pulmonic valve is not well visualized. Great Vessels The aortic root is not well visualized. Pericardium/Pleural No pericardial effusion. Medication 22 gauge I.V. with prn adaptor inserted into left arm. Diluted definity 4.0ml given slow IV push to enhance endocardial definition. MMode/2D Measurements & Calculations LVIDd: 4.8 cm IVSd: 1.2 cm Ao root diam: 3.9 cm LVIDs: 3.5 cm LVPWd: 1.1 cm FS: 26.7 % LAV(MOD-bp): 88.7 ml LVAd ap4: 22.9 cm2 LVAd ap2: 22.4 cm2 LAV(MOD-bp) Indexed: 35.9 ml/m2 LVLd ap4: 8.1 cm LVLd ap2: 8.3 cm LAV(MOD-sp2): 81.8 ml EDV(MOD-sp4): 57.2 ml EDV(MOD-sp2): 49.5 ml LAV(MOD-sp4): 93.2 ml EDV(sp4-el): 54.9 ml EDV(sp2-el): 51.7 ml LVAs ap4: 14.7 cm2 LVAs ap2: 13.9 cm2 LVLs ap4: 7.5 cm LVLs ap2: 6.8 cm ESV(MOD-sp4): 25.9 ml ESV(MOD-sp2): 23.1 ml ESV(sp4-el): 24.4 ml ESV(sp2-el): 24.3 ml EF(MOD-sp4): 54.7 % EF(MOD-sp2): 53.4 % EF(sp4-el): 55.5 % SV(MOD-sp4): 31.3 ml SV(MOD-sp2): 26.4 ml SV(sp4-el): 30.5 ml LA A4 area: 25.8 cm2 LA dimension(2D): 5.1 cm Doppler Measurements & Calculations MV E max kacie: 80.6 cm/sec Ao V2 max: 81.5 cm/sec LV V1 max: 59.5 cm/sec Ao max P.7 mmHg LV V1 max P.4 mmHg Ao V2 mean: 56.5 cm/sec LV V1 mean P.84 mmHg Ao mean P.4 mmHg LV V1 mean: 44.0 cm/sec Ao V2 VTI: 13.1 cm LV V1 VTI: 11.7 cm AV (velocity ratio): 0.90 MR max kacie: 446.8 cm/sec PA V2 max: 86.9 cm/sec TR max kacie: 227.1 cm/sec MR max P.8 mmHg PA V2 mean: 61.6 cm/sec TR max P.6 mmHg MR mean kacie: 363.8 cm/sec MR mean P.9 mmHg MR VTI: 139.8 cm ECHO/Echo Complete W/ Contrast Interpretation Summary The estimated ejection fraction is 65 %. Unable to assess diastolic dysfunction. The left atrium is mildly enlarged. Ordering Physician: Shay Neal Referring Physician: Lin Carbone Performed By: Velia Jacobson, MILAGROS, RVT
== END | disposition home or self-care (01) ==
LOC: CVS 07:48
PROVIDERS: PCP Internal Medicine; Referring Provider Specialist; Visit Provider Specialist
DX: I34.0 Nonrheumatic mitral (valve) insufficiency (principal); I48.11 Longstanding persistent atrial fibrillation; I10 Essential (primary) hypertension; R42 Dizziness and giddiness
CPT/HCPCS: 93225; 93226; 93306; Q9957; A4216; C8929

== ENCOUNTER → 2023-10-11 | Outpatient (CLI) | payer MEDICARE, SELFPAY ==
--- OUTSIDE RECORDS SUMMARY | 2023-10-11 10:50 | XMS RPT_ITS | CCD ---
Author Name Unknown Address [address] [place] [address] Organization [facility] Care Team Providers Care Funeral Pre Arrangement Counselor Name Role Phone NORTH MOYER Unavailable Unavailable Mik BERNAL, Be Medley Unavailable Tona BERNAL, Lin Primary Care Provider [phone] Tona BERNAL, Lin Primary Care Provider [phone] Tona BERNAL, Lin Primary Care Provider [phone] GANTA, LIN Primary Care Unavailable GANTA, LIN Attending Unavailable GANTA, LIN Primary Care Unavailable JIGNESH CONTIY Attending Unavailable GANTA, LIN Primary Care Unavailable GANTA, LIN Attending Unavailable GANTA, LIN Primary Care Unavailable GANTA, LIN Attending Unavailable GANTA, LIN Referring Unavailable GANTA, LIN Primary Care Unavailable GANTA, LIN Primary Care Unavailable GANTA, LIN Referring Unavailable GANTA, LIN Primary Care Unavailable GANTA, LIN Referring Unavailable GANTA, LIN Primary Care Unavailable GANTA, LIN Referring Unavailable Allergies Allergy Classification Reported Allergen(s) Allergy Type Date of Onset Reaction(s) Facility (1 source) [facility]; Translations: [ARTIFIC[employer] SWEETENERS] food allergy 9 diarrhea [facility] Work Phone: (18 sources) Chlorhexidine; Translations: [CHLORHEXIDINE] Drug Allergy 1 Rash, Itching [facility] Work Phone: Medications Current Medications Medication Drug Class(es) Dates Sig (Normalized) Sig (Original) amoxicillin 875 mg / clavulanate 125 mg oral tablet (1 source) Penicillin-class Antibacterial Start: 11-10-2022 End: 11-20-2022 take 1 tablet by mouth twice daily amoxicillin-clav ulanic acid (AUGMENTIN) 875-125 mg per tablet Take 1 tablet by mouth twice daily for 10 days. 20 tablet 0 11/10/2022 11/20/2022 Active Completed/Discontinued Medications Medication Drug Class(es) Dates Sig (Normalized) Sig (Original) allopurinol 300 mg oral tablet (19 sources) Xanthine Oxidase Inhibitor Start: 06-06-2021 End: 05-31-2023 take 1 tablet by mouth twice daily allopurinol (ZYLOPRIM) 300 mg tablet Take 1 tablet by mouth two times a day. For gout. 180 tablet 3 05/31/2023 Active Problems Active Problems Problem Classification Problem Date Documented Da te Episodic/Chronic Cardiac dysrhythmias (20 sources) Permanent atrial fibrillation; Translations: [Permanent atrial fibrillation] Onset: 06-29-2018 06-29-2018 Chronic Chronic kidney disease (19 sources) Chronic kidney disease stage 3; Translations: [CKD (chronic kidney disease) stage 3, GFR 30-59 ml/min] Onset: 06-07-2020 06-07-2020 Chronic Chronic kidney disease (1 source) Chronic kidney disease; Translations: [Hypertensive kidney disease with stage 3a chronic kidney disease (HCC)] Onset: 06-07-2020 Diabetes mellitus with complications (2 sources) Type 2 diabetes mellitus; Translations: [Type 2 diabetes mellitus with diabetic chronic kidney disease] Onset: 05-24-2023 Chronic Diabetes mellitus without complication (1 source) Diabetes mellitus without complication; Translations: [Type 2 diabetes mellitus with stage 3a chronic kidney disease, without long-term current use of insulin (HCC)] Onset: 05-24-2023 Essential hypertension (20 sources) Hypertensive disorder; Translations: [Essential (primary) hypertension] Onset: 11-14-2013 11-14-2013 Chronic Hypertension with complications and secondary hypertension (19 sources) Chronic kidney disease stage 3 due to hypertension; Translations: [Hypertensive chronic kidney disease with stage 1 through stage 4 chronic kidney disease, or unspecified chronic kidney disease] Onset: 06-07-2020 06-07-2020 Chronic Inflammation; infection of eye (except that caused by tuberculosis or sexually transmitteddisease) (17 sources) Superficial punctate keratitis; Translations: [Punctate keratitis, unspecified eye] Onset: 10-09-2013 10-09-2013 Chronic Nutritional deficiencies (2 sources) Vitamin D deficiency; Translations: [Vitamin D deficiency, unspecified] Onset: 02-26-2023 Chronic Osteoarthritis (20 sources) Unilateral primary osteoarthritis, left hip; Translations: [Unilateral primary osteoarthritis, right hip] Onset: 07-27-2014 04-24-2019 Chronic Other diseases of veins and lymphatics (17 sources) Edema; Translations: [Chronic venous hypertension (idiopathic) without complications of unspecified lower extremity] Onset: 11-14-2013 11-14-2013 Chronic Other gastrointestinal disorders (2 sources) Dysphagia; Translations: [Dysphagia, unspecified] Episodic Other male genital disorders (2 sources) Male erectile dysfunction, unspecified; Translations: [Impotence of organic origin] Chronic Other nervous system disorders (17 sources) Cerebral cyst; Translations: [Cerebral cysts] Onset: 05-29-2013 05-29-2013 Chronic Other nervous system disorders (17 sources) Chronic pain syndrome; Translations: [Chronic pain syndrome] Onset: 03-18-2016 03-18-2016 Chronic Other non-traumatic joint disorders (2 sources) Pain in left hip; Translations: [Pain in right hip] Onset: 02-26-2018 Episodic Other nutritional; endocrine; and metabolic disorders (18 sources) Severe obesity; Translations: [Morbid (severe) obesity due to excess calories] Onset: 02-26-2018 06-07-2020 Chronic Other upper respiratory disease (1 source) Disorder of upper respiratory system; Translations: [Disease of upper respiratory tract, unspecified] Episodic Thyroid disorders (20 sources) Multinodular goiter; Translations: [Nontoxic multinodular goiter] Onset: 02-13-2014 02-13-2014 Chronic Unclassified (1 source) Permanent atrial fibrillation; Translations: [Permanent atrial fibrillation (HCC)] Onset: 06-29-2018 Viral infection (1 source) Viral disease; Translations: [Viral infection, unspecified] Episodic Past or Other Problems Problem Classification Problem Date Documented Da te Episodic/Chronic Complication of device; implant or graft (17 sources) Dislocated intraocular lens; Translations: [Displacement of intraocular lens, initial encounter] Onset: 10-12-2014 10-12-2014 Episodic Diabetes mellitus without complication (2 sources) Prediabetes; Translations: [Prediabetes] Onset: 01-11-2023 Episodic Genitourinary symptoms and ill-defined conditions (17 sources) Proteinuria; Translations: [Proteinuria, unspecified] Onset: 03-18-2016 03-18-2016 Episodic Other gastrointestinal disorders (1 source) Dysphagia, unspecified; Translations: [Dysphagia, unspecified type] Onset: 02-26-2023 Episodic Other screening for suspected conditions (not mental disorders or infectious disease) (3 sources) Raised TSH level; Translations: [Other specified abnormal findings of blood chemistry] Onset: 02-26-2023 Episodic Other upper respiratory disease (1 source) Disease of upper respiratory tract, unspecified; Translations: [Upper respiratory disease] Onset: 11-10-2022 Episodic Other upper respiratory infections (2 sources) Upper respiratory infection; Translations: [Acute upper respiratory infection, unspecified] Onset: 10-31-2022 Episodic Retinal detachments; defects; vascular occlusion; and retinopathy (17 sources) Retinal detachment; Translations: [Serous retinal detachment, unspecified eye] Onset: 11-14-2013 11-14-2013 Episodic Unclassified (1 source) Problem Results Test Name Value Interpretation Reference Range Facil ity Vital Signs Date Time Vital Sign Value Performing Clinician Facility 01-11-2023 07:58-0400 Body weight 149.69 kg Lin Carbone MD Work Phone: [facility] 01-11-2023 07:58-0400 Diastolic blood pressure 70 mm[Hg] Lin Carbone MD Work Phone: [facility] 01-11-2023 07:58-0400 Heart rate 86 /min Lin Carbone MD Work Phone: [facility] 01-11-2023 07:58-0400 Respiratory rate 16 /min Lin Carbone MD Work Phone: [facility] 01-11-2023 07:58-0400 SaO2% (BldA) [Mass fraction] 97 % Lin Carbone MD Work Phone: [facility] 01-11-2023 07:58-0400 Systolic blood pressure 112 mm[Hg] Lin Carbone MD Work Phone: [facility] 11-10-2022 13:47-0400 Body temperature 97.2 [degF] Ailyn Conti APRN.CNP Work Phone: [facility] 11-10-2022 13:47-0400 Body weight 141.98 kg Ailyn Older INSPECTOR FINAL ASSEMBLY CONVEYOR LINE.ERP TECHNICAL LEAD Work Phone: [facility] 11-10-2022 13:47-0400 Diastolic blood pressure 64 mm[Hg] Ailyn Older INSPECTOR FINAL ASSEMBLY CONVEYOR LINE.ERP TECHNICAL LEAD Work Phone: [facility] 11-10-2022 13:47-0400 Heart rate 70 /min Ailyn Older INSPECTOR FINAL ASSEMBLY CONVEYOR LINE.ERP TECHNICAL LEAD Work Phone: [facility] 11-10-2022 13:47-0400 Respiratory rate 16 /min Ailyn Older INSPECTOR FINAL ASSEMBLY CONVEYOR LINE.ERP TECHNICAL LEAD Work Phone: [facility] 11-10-2022 13:47-0400 SaO2% (BldA) [Mass fraction] 97 % Ailyn Older INSPECTOR FINAL ASSEMBLY CONVEYOR LINE.ERP TECHNICAL LEAD Work Phone: [facility] 11-10-2022 13:47-0400 Systolic blood pressure 112 mm[Hg] Ailyn Older INSPECTOR FINAL ASSEMBLY CONVEYOR LINE.ERP TECHNICAL LEAD Work Phone: [facility] 10-31-2022 11:41-0400 Body height 172.7 cm Lin Carbone MD Work Phone: [facility] 10-31-2022 11:41-0400 Body temperature 97.3 [degF] Lin Carbone MD Work Phone: [facility] 10-31-2022 11:41-0400 Body weight 141.98 kg Lin Carbone MD Work Phone: [facility] 10-31-2022 11:41-0400 Diastolic blood pressure 60 mm[Hg] Lin Carbone MD Work Phone: [facility] 10-31-2022 11:41-0400 Heart rate 115 /min Lin Carbone MD Work Phone: [facility] 10-31-2022 11:41-0400 Respiratory rate 14 /min Lin Carbone MD Work Phone: [facility] 10-31-2022 11:41-0400 SaO2% (BldA) [Mass fraction] 98 % Lin Carbone MD Work Phone: [facility] 10-31-2022 11:41-0400 Systolic blood pressure 132 mm[Hg] Lin Carbone MD Work Phone: [facility] 07-18-2022 16:54-0500 Body height 172.7 cm Lin Carbone MD Work Phone: [facility] 07-18-2022 16:54-0500 Body temperature 98.49 [degF] Lin Carbone MD Work Phone: [facility] 07-18-2022 16:54-0500 Body weight 148.33 kg Lin Carbone MD Work Phone: [facility] 07-18-2022 16:54-0500 Diastolic blood pressure 70 mm[Hg] Lin Carbone MD Work Phone: [facility] 07-18-2022 16:54-0500 Heart rate 89 /min Lin Carbone MD Work Phone: [facility] 07-18-2022 16:54-0500 Respiratory rate 18 /min Lin Carbone MD Work Phone: [facility] 07-18-2022 16:54-0500 SaO2% (BldA) [Mass fraction] 99 % Lin Carbone MD Work Phone: [facility] 07-18-2022 16:54-0500 Systolic blood pressure 120 mm[Hg] Lin Carbone MD Work Phone: [facility] NEGATED: Highlighted [id number] 10:120400 BMI (Body Mass Index) 43.36 kg/m2 Steff Brandan RUSSIAN RUBBER [facility] Work Phone: NEGATED: Highlighted [id number] 10:12040 Body weight 127.01 kg Steff Brandan RUSSIAN RUBBER [facility] Work Phone: NEGATED: Highlighted [id number] 10:12040 Body weight 127 kg Steff Brandan RUSSIAN RUBBER [facility] Work Phone: NEGATED: Highlighted [id number] 10:12-0400 BP Diastolic 61 mm[Hg] Steff Brandan RUSSIAN RUBBER [facility] Work Phone: NEGATED: Highlighted [id number] 10:12-0400 BP Systolic 91 mm[Hg] Steff Brandan RUSSIAN RUBBER [facility] Work Phone: NEGATED: Highlighted [id number] 10:12-0400 Heart rate 1+ Steff Brandan RUSSIAN RUBBER [facility] Work Phone: NEGATED: Highlighted [id number] 10:12-0400 Height 171.45 cm Steff Brandan RUSSIAN RUBBER [facility] Work Phone: NEGATED: Highlighted [id number] 10:120400 Height 171 cm Steff Brandan RUSSIAN RUBBER [facility] Work Phone: NEGATED: Highlighted [id number] 10:12-0400 Pulse (Heart Rate) 80 /min Steff Brandan RUSSIAN RUBBER [facility] Work Phone: Encounters Encounter Date Encounter Type Care Provider Facility Start: 10-03-2023 Telephone encounter Ailyn Sesar ARIAS Work Phone: [facility] Procedures Date Procedure Procedure Detail Performing Clinician Start: 01-24-2023 soft tissue head & neck real time imge docm Lin Carbone MD Work Phone: Start: 10-31-2022 Hemoglobin A1c/Hemoglobin.total in Blood Lin Carbone MD Work Phone: Start: 07-18-2022 Hemoglobin A1c/Hemoglobin.total in Blood Lin Carbone MD Work Phone: Start: 12-17-2020 Adult depression screening assessment Lin Carbone MD Work Phone: Start: 05-09-2019 Colonoscopy Lin lopes MD Work Phone: Start: 04-24-2019 End: 04-24-2019 Blood pressure within normal parameters - no follow-up required Be Houser MD Work Phone: Start: 04-24-2019 End: 04-24-2019 BMI documented as above normal parameters - follow-up documented Be Houser MD Work Phone: Start: 04-24-2019 End: 04-24-2019 Documentation of current medications Be Houser MD Work Phone: Start: 04-24-2019 End: 04-24-2019 Osteoarthritis assess Be Houser MD Work Phone: Start: 04-24-2019 End: 04-24-2019 Pain assessment documented as positive - follow-up documented Be Houser MD Work Phone: Start: 04-24-2019 End: 04-24-2019 Radex hip unilateral with pelvis 2-3 views Be Houser MD Work Phone: Start: 04-24-2019 End: 04-24-2019 Tobacco non-user Be Houser MD Work Phone: NEGATED: Highlighted rowStart: 04-24-2019 End: 04-24-2019 Documentation of current medications Steff Gipson LPN Plan of Treatment Date Care Activity Detail Author Start: 02-27-2028 LIPID SCREEN LIPID SCREEN [facility] Start: 01-12-2028 LIPID SCREEN LIPID SCREEN [facility] Start: 04-20-2026 LIPID SCREEN LIPID SCREEN [facility] Start: 02-26-2026 DIABETES SCREEN DIABETES SCREEN [facility] Start: 01-11-2026 DIABETES SCREEN DIABETES SCREEN [facility] Start: 10-31-2025 DIABETES SCREEN DIABETES SCREEN [facility] Start: 07-18-2025 DIABETES SCREEN DIABETES SCREEN [facility] Start: 10-01-2024 Annual PCP Team Chronic Disease Visit Annual PCP Team Chronic Disease Visit [facility] Start: 10-01-2024 BP Controlled (<130/80) BP Controlled (<130/80) [facility] Start: 10-01-2024 Complete blood count Hemoglobin/Hematocrit [facility] Start: 10-01-2024 Creatinine measurement Serum Creatinine [facility] Start: 05-28-2024 Urine microalbumin profile [facility] Start: 05-24-2024 Hemoglobin/Hematocrit Hemoglobin/Hematocrit [facility] Start: 05-24-2024 Hepatitis B surface antibody level LDL Cholesterol [facility] Start: 05-24-2024 Serum Creatinine Serum Creatinine [facility] Start: 05-09-2024 Colonoscopy COLONOSCOPY [facility] Start: 05-09-2024 COLORECTAL CANCER SCREENING COLORECTAL CANCER SCREENING [facility] Start: 05-09-2024 Screening for malignant neoplasm of colon [facility] Start: 04-20-2024 DIABETES SCREEN DIABETES SCREEN [facility] Start: 02-27-2024 HEMOGLOBIN/HEMATOCRIT HEMOGLOBIN/HEMATOCRIT [facility] Start: 02-27-2024 SERUM CREATININE SERUM CREATININE [facility] Start: 02-01-2024 End: 03-01-2024 Us soft tissue head & neck real time imge docm US THYROID/PARATHYROID Radiology Routine Thyroid nodule Expected: 02/01/2024, Expires: 03/01/2024 [facility] Work Phone: Immunizations Immunization Date Immunization Notes Care Provider [facility] 06-03-2019 influenza, high dose seasonal, preservative-free Lin Carbone MD Work Phone: [facility] Work Phone: 06-03-2019 pneumococcal polysaccharide vaccine, 23 valent Lin Carbone MD Work Phone: [facility] Work Phone: 06-03-2019 influenza virus vacc ine, unspecified formulation Mally Lance INSPECTOR FINAL ASSEMBLY CONVEYOR LINE.COMPLEX CARE NURSE PRACTITIONER Work Phone: [facility] 05-18-2016 influenza, injectabl e, quadrivalent, contains preservative Lin Carbone MD Work Phone: [facility] 08-17-2015 influenza, injectabl e, quadrivalent, contains preservative Lin Carbone MD Work Phone: [facility] 05-28-2014 influenza, seasonal, injectable Lin Carbone MD Work Phone: [facility] 05-28-2014 tetanus toxoid, redu moy diphtheria toxoid, and acellular pertussis vaccine, adsorbed Lin Carbone MD Work Phone: [facility] 07-22-2013 pneumococcal polysaccharide vaccine, 23 valent Lin Carbone MD Work Phone: [facility] 05-22-2013 influenza virus vacc ine, unspecified formulation Lin Carbone MD Work Phone: [facility] Payers Date Payer Category Payer Unknown PRIMETIME PRIMET VIANEY O POS [id number] 2019-Present [phone] [address] [place] [address] O [id number] 2019 Unknown PRIMETIME PRIMET VIANEY O POS [id number] 2019-Present [phone] [address] [place] [address] HMO [id number] 2019 Unknown [id number] Social History Date Type Detail Facility Start: 04-24-2019 End: 04-24-2019 Assertion Unknown if ever smoked [facility] Work Phone: Start: 10-09-2013 End: 07-18-2022 Tobacco smoking status NHIS Never smoked tobacco [facility] History of tobacco use Cigar Smoker [facility] Start: 10-09-2013 End: 10-01-2023 Cigarettes smoked current (pack per day) - Reported 0.01 [facility] Start: 10-09-2013 End: 07-18-2022 Tobacco use and exposure Former smokeless tobacco user [facility] End: 08-06-1987 History of tobacco use Snuff User [facility] End: 08-06-1987 History of tobacco use Chews Tobacco [facility] Start: 03-25-2021 End: 01-11-2023 Alcohol intake Current non-drinker of alcohol (finding) [facility] Start: 06-07-2020 End: 09-29-2021 History SDOH Alcohol Frequency 1 [facility] Start: 08-29-2019 End: 06-07-2020 History SDOH Alcohol Std Drinks 98 [facility] Start: 08-29-2019 History SDOH Social Connections Phone 5 [facility] Start: 08-29-2019 End: 06-07-2020 History SDOH Social Connections Sabianist 3 [facility] Start: 06-07-2020 History SDOH Physical Activity DPW 0 [facility] Start: 06-07-2020 End: 09-29-2021 History SDOH Stress 2 [facility] Start: 06-07-2020 History SDOH Financial 4 [facility] Start: 08-29-2019 Education 17 [facility] Start: 1955 Sex Assigned At Male [facility] Start: 11-04-2021 End: 11-14-2021 Exposure to SARS-CoV-2 (event) Not sure [facility] Work Phone: History of tobacco use Cigarette Smoker [facility] Start: 06-07-2020 End: 10-01-2023 Social connection and isolation panel [facility] Frequency of Communication with Friends and Family Not on file [facility] Are you now , , , , never or living with a partner? [facility] How often to you hav e a drink containing alcohol? Never [facility] How hard is it for y ou to pay for the very basics like food, housing, medical care, and heating Not very hard [facility] Do you feel stress - tense, restless, nervous, or anxious, or unable to sleep at night because your mind is troubled all the time - these days [OSQ] Only a little [facility] (I/We) worried wheth er (my/our) food would run out before (I/we) got money to buy more. Never true [facility] In the past 12 month s, was there a time when you were not able to pay the mortgage or rent on time? No [facility] Start: 04-03-2019 Gender identity Identifies as male gender (finding) [facility] Start: 04-03-2019 Sexual orientation Heterosexual (finding) [facility] Do you belong to any clubs or organizations such as rastafari groups, unions, fraternal or athletic groups, or school groups? Yes [facility] (I/We) worried wheth er (my/our) food would run out before (I/we) got money to buy more. DK or Refused [facility] Medical Equipment Procedure Code Equipment Code Equipment Origin al Text Equipment Identifier Dates Strip Retin 5mm [id number] [facility] - [id number] Start: 05-23-2013 Clinical Notes 06-07-2020 to 10-03-2023 Telephone Encounter - Lashay Garcia Ma - 10/03/2023 1:27 PM ESTTelephone Encounter - Ailyn Conti APRN.ROSIE - 10/03/2023 1:07 PM ESTTelephone Encounter - Madie Neal LPN - 05/31/2023 10:58 AM EDT Note Date & Type Note Facility 10-03-2023 Miscellaneous Notes Formattin g of this note might be different from the original. Patient notified. TSH still abnormal. Increase levothyroxine to 1 tablet daily except take 2 tablets on Sundays. Recheck levels in 4-6 weeks. Kidney function decreased again. Any over the counter use of anti-inflammatories? Motrin, ibuprofen, advil, naproxen, advil, etc... If so, please avoid these, stay hydrated and we can recheck at your follow up. Thank you Ailyn Conti APRN.ERP TECHNICAL LEAD documented in this encounter [facility] 05-31-2023 Miscellaneous Notes Formattin g of this note is different from the original. Patient has been identified by name and date of : Yes, Provider Dr Carbone covering provider Date 05/31/23 Spouse Madie phones for refill(s): Requested Prescriptions Pending Prescriptions Disp Refills allopurinol (ZYLOPRIM) 300 mg tablet 180 tablet 3 Sig: Take 1 tablet by mouth two times a day. For gout. Date of last office visit in primary care: 01/11/23 Date of next office visit in primary care: 07/13/23 Last 2 Encounter Wt Readings: Date: Wt: 01/11/2023 149.7 kg (330 lb) 11/10/2022 142 kg (313 lb) Please advise. Thank you. Madie Neal LPN. documented in this encounter [facility] 05-25-2023 Miscellaneous Notes Formattin g of this note might be different from the original. Pt and notified of results. Instructed to keep f/u appt in July. ----- Message from Mally Lance APRN.COMPLEX CARE NURSE PRACTITIONER sent at 05/25/2023 4:41 PM EDT ----- Has July appt Hemoglobin A1c is improved to 5.8%, TSH improved but remains a bit elevated, BUN and creatinine elevated, stable compared to previous. Glucose at 120. CBC in acceptable range. documented in this encounter [facility] documented in this encounter [facility]07-31-2023 Miscellaneous Notes* Telephone Encounter - Lashay Garcia Ma - 03/05/2023 4:14 PM EDT No lab work completed at [facility] in the last year. * Telephone Encounter - Ailyn Conti APRN.CNP - 03/05/2023 1:03 PM EDT Please get lab work done at [facility] and put on my desk for review. Thank you Ailyn Conti APRN.ERP TECHNICAL LEAD [facility] Miscellaneous Notes* Telephone Encounter - Juana Sterling LPN - 01/31/2023 12:24 PM EDT Patient notified. Verbalized understanding. Forwarding to clerical to schedule US for next January. Patient aware. * Telephone Encounter - Kandy Sullivan PA-C - 01/31/2023 12:00 PM EDT Please call patient and let him know there was a small nodule noted on his ultrasound. They are often benign (totally fine), but require surveillance to ensure stability and make sure it's non-concerning. They recommend repeat US 1, 2, 3, and 5 years later. I have future ordered a repeat thyroid todo in 1 year. Kandy Sullivan PA-C documented in this encounterOhio[facility]06-21-[facility]23 NoteHNO ID: [id number] Author: Qing Dasilva RDMS Service: ? Author Type: Computer Network Support Specialist Type: Progress Notes Filed: 01/24/2023 3:22 PM Note Text: Radiology Service Progress Note PATIENT NAME: Arden Atwood DATE OF SERVICE: January 24, 2023 TIME: 3:21 PM PATIENT IDENTITY VERIFICATION COMPLETED USING TWO (2) IDENTIFIERS: Name and Date of confirmed by patient verbally. FALL SCREENING: Has the patient had 2 falls in the last year or 1 fall with injury or currently using an Ambulatory Assistive Device (Walker, Cane, Wheelchair, Crutches, etc.)? Yes, Patient High Risk for Falls What interventions were put in place to prevent falls during this visit? Instructed Patient to Call for Help if Needed, Offered Assistance with Transfers/Clothing, Instructed Patient to Remain Seated (Not on Exam Table) Until Exam, and Increased Observations by Caregivers PATIENT GENDER DATA: Male PATIENT RELEVANT IMPLANT DATA REVIEWED: Not Applicable RADIOLOGY DEPARTMENT: Ultrasound PERIPHERAL IV DATA: Not applicable SIGNED BY: Qing Dasilva RDMS RVT January 24, 2023 3:21 [facility]06-21-2023 History of Present illness Narrative* Qing Dasilva RDMS - 01/24/2023 9:15 AM EDT Radiology Service Progress Note PATIENT NAME: Arden Atwood DATE OF SERVICE: January 24, 2023 TIME: 3:21 PM PATIENT IDENTITY VERIFICATION COMPLETED USING TWO (2) IDENTIFIERS: Name and Date of confirmedby patient verbally. FALL SCREENING: Has the patient had 2 falls in the last year or 1 fall with injury or currently using an Ambulatory Assistive Device (Walker, Cane, Wheelchair, Crutches, etc.)? Yes, Patient High Riskfor Falls What interventions were put in place to prevent falls during this visit? Instructed Patient to Callfor Help if Needed, Offered Assistance with Transfers/Clothing, Instructed Patient to Remain Seated(Not on Exam Table) Until Exam, and Increased Observations by Caregivers PATIENT GENDER DATA: Male PATIENT RELEVANT IMPLANT DATA REVIEWED: Not Applicable RADIOLOGY DEPARTMENT: Ultrasound PERIPHERAL IV DATA: Not applicable SIGNED BY: Qing Dasilva RDMS RVT January 24, 2023 3:21 PM documented in this encounterOhio[facility]06-14-2023 Miscellaneous Notes* Telephone Encounter - Lashay Garcia Ma - 01/17/2023 2:20 PM EDT Madie notified, please assist in scheduling. * Telephone Encounter - Lin Carbone MD - 01/17/2023 1:04 PM EDT Thanks ailyn, For thyroid: I ordered tsh and vit, d , sometimes vit d def can show low tsh and when vit d is corrected , thyroid get corrected. If tsh is still high he would need to be started on thyroid medication US of thyroid is also ordered. Lipids are good I would hold the spironolactone as his potassium is on the higher side, it will also be a medication we can stay off to help bring his bp up Labs and imaging is ordered please help with schecholing Regards, Lin Carbone MD * Telephone Encounter - Ailyn Conti APRN.ROSIE - 01/17/2023 9:[address] Carbone Please review below. You saw this patient recently and addressed majority of below blood work Ailyn Conti APRN.CNP * Telephone Encounter - Priya Singh LPN - 01/15/2023 12:00 PM EDT Pt's calls in regards to pt's lab results. 1) TSH is high. reports pt states he can feel a lump internally. Pt had partial thyroid removal previously per Madie. Madie is request an US of thyroid and asking if pt needs to be placed on thyroid medication. 2) Pt's bp has been low. Madie is asking if bp meds need changed. 3) Concerned with kidney results. Madie reports pt urinates a lot through the night. 4) Potassium is high - pt is taking irbesartan 300 mg daily. Any changes in medications. Madie reports some of the abnormal results are new and pt is concerned about what to do. Please review and advise. Component Latest Ref Rng & Units 01/11/2023 Glucose 74 - 99 mg/dL 97 BUN 9 - 24 mg/dL 51 (H) Creatinine 0.73 - 1.22 mg/dL 1.85 (H) Sodium 136 - 144 mmol/L 135 (L) Potassium 3.7 - 5.1 mmol/L 5.1 Chloride 97 - 105 mmol/L 101 CO2 22 - 30 mmol/L 21 (L) Anion Gap 9 - 18 mmol/L 13 Calcium 8.5 - 10.2 mg/dL 10.1 eGFR >=60 mL/min/1.73m 39 (L) Cholesterol, Total <200 mg/dL 151 Triglyceride <150 mg/dL 80 HDL Cholesterol >39 mg/dL 41 Non HDL Cholesterol <130 mg/dL 110 Fasting Time hrs 12 VLDL Cholesterol <30 mg/dL 16 TC:HDL Ratio <5.10 3.68 LDL Cholesterol <100 mg/dL 94 LDL:HDL Ratio <2.54 2.29 Hemoglobin A1C 4.3 - 5.6 % 5.9 (H) Estimated Average Glucose mg/dL 123 TSH 0.270 - 4.200 mIU/L 5.660 (H) documented in this encounterOhio[facility]06-08-2023 NoteHNO ID: [id number] Author: Lin Carbone MD Service: ? Author Type: Physician Type: Progress Notes Filed: 01/11/2023 8:47 AM Note Text: Reason for Visit Patient presents with: Recheck: 3 month DM Arden Atwood is a 67 year old male who presents here today for Above Complaints.. Health Maintenance SHINGRIX VACCINE(1 of 2) HEMOGLOBIN/HEMATOCRIT PNEUMOCOCCAL: 65+(2 - PCV) COVID-19 VACCINE(3 - Booster for Moderna series) SERUM CREATININE ADVANCE DIRECTIVE DISCUSSION HPI Ed is a very pleasant 66-year-old gentleman with a history of pretension, hypertensive kidney disease CKD stage III, atrial fibrillation, multiple thyroid nodules and recently had a huge thyroid surgery, osteoarthritis of both hips knees and back pain, chronic pain and history of a brain cyst and gout. Past couple months, the patient had been battling with uri, he had 2 courses of abx taken. Had bacterial infections and covid too. He did not take the paxlovid. He was ill but got better. He is doing much much better today. Patient got a new step grand daughter that adores fishing. During the above mentioned time his bp was low so he was holding off the irbesartan, it was cut in half strength but he is taking the medication currently . Patient was supposed to cut it 4 ways and some of the pills were bigger than before. HTN: BP controlled today. Checks BP at home. Compliant with medications. Denies any chest pain, palpitations, SOB, swelling in the feet. Careful with diet to avoid salt, trying to eat more fruits and vegetables, exercises regularly Afib : on xeralto and metoprolol and he is doing good No problem-specific Assessment AND Plan notes found for this encounter. PAST MEDICAL HISTORY Diagnosis Date Atrial fibrillation (HCC) Cataract both eyes Diabetes (HCC) Dislocated intraocular lens od Hyperlipidemia Hypertension Pseudophakia of both eyes Retinal detachment OD Sleep apnea Type 2 diabetes mellitus with stage 3 chronic kidney disease, without long-term current use of insulin (HCC) 06/07/2020 PAST SURGICAL HISTORY Procedure Laterality Date CHOLECYSTECTOMY HX COLONOSCOPY FLX DX W/COLLJ SPEC WHEN PFRMD 05/09/2019 colonoscopy 5 year recall FNA WITH IMAGING 03/04/14 U/S FNA bilataeral thyroid nodules OTHER SURGICAL HISTORY (PLEASE SPECIFY) HX 04/26/2020 isthmusectomy- PAST SURGICAL HISTORY OF removal of skin from abdomen post weight loss REPAIR RETINAL DETACHMENT SCLERAL BUCKLING 05/23/13 SB (Scleral Buckle) OD TOTAL THYROID LOBECTOMY UNI W/WO ISTHMUSECTOMY Right 04/26/2020 VITRECTOMY MECHANICAL PARS PLANA 05/23/13 PPV (Pars Plana Vitrectomy) OD VITRECTOMY MECHANICAL PARS PLANA 01/05/15 od PPV/removal of dislocated PCIOL/place ACIOL/Peripheral Iridectomy OD XCAPSL CTRC RMVL INSJ IO LENS PROSTH W/O ECP ou Cataract Extraction with PC IOL FAMILY HISTORY Problem Relation Age of Onset Prostate Cancer Father Ischemic Heart Disease Father Stroke Father Stroke Maternal Uncle Alzheimer's Disease Mother No Ocular Disease No Family History Social History Tobacco Use Smoking status: Never Smokeless tobacco: Former Types: Snuff, Chew Quit date: 08/06/1987 Substance Use Topics Alcohol use: No Drug use: No Past medical history, appointments, medications, allergies reviewed. Pertinent Lab/Diagnostic Studies are reviewed and discussed today Current Outpatient Medications: predniSONE (DELTASONE) 20 mg tablet rivaroxaban (XARELTO) 20 mg tablet metoprolol tartrate, short acting, (LOPRESSOR) 50 mg tablet sildenafil (VIAGRA) 100 mg tablet allopurinol (ZYLOPRIM) 300 mg tablet spironolactone (ALDACTONE) 25 mg tablet irbesartan (AVAPRO) 300 mg tablet Review of Systems CONSTITUTIONAL: No fevers, chills night sweats, unintended weight loss CARDIOVASCULAR: No chest pain, dyspnea, palpitations, orthopnea, PND, ankle edema. PULM: No dyspnea, unexplained cough. GI: No dysphagia/odynophagia, problematic reflux, constipation, diarrhea, changes in stool habits, hematochezia, melena. : No new urinary complaints, including dysuria, gross hematuria or pyuria. NEURO: No new balance problems, peripheral weakness/paresthesias or numbness of concern. Physical Exam BP 112/70 Pulse 86 Resp 16 Wt (!) 149.7 kg (330 lb) SpO2 97% BMI 50.18 kg/m? General appearance: Well appearing, alert, in no acute distress, well nourished. Skin: Skin color, texture, turgor normal, no suspicious rashes or lesions Head: Normocephalic, no masses, lesions, tenderness or abnormalities Eyes: Anicteric sclera. Pupils are equally round and reactive to light. Extraocular movements are intact. Lungs: Lungs clear to auscultation. No wheezing, rhonchi, rales Heart: RRR without murmur, gallop, or rubs. Extremities: No deformities, edema, skin discoloration, clubbing or cyanosis. Good capillary refill. ASSESSMENT/PLAN: 1. Primary hypertension - ICD9: (more content not included)...[facility]06-08-2023 History of Present illness Narrative* Lin Carbone MD - 01/11/2023 8:14 AM EDT Reason for Visit Patient presents with: Recheck: 3 month DM Edsummer Atwood is a 67 year old male who presents here today for Above Complaints.. Health Maintenance SHINGRIX VACCINE(1 of 2) HEMOGLOBIN/HEMATOCRIT PNEUMOCOCCAL: 65+(2 - PCV) COVID-19 VACCINE(3 - Booster for Moderna series) SERUM CREATININE ADVANCE DIRECTIVE DISCUSSION HPI Ed is a very pleasant 66-year-old gentleman with a history of pretension, hypertensive kidney disease CKD stage III, atrial fibrillation, multiple thyroid nodules and recently had a huge thyroid surgery, osteoarthritis of both hips knees and back pain, chronic pain and history of a brain cyst and gout. Past couple months, the patient had been battling with uri, he had 2 courses of abx taken. Had bacterial infections and covid too. He did not take the paxlovid. He was ill but got better. He is doing much much better today. Patient got a new step grand daughter that adores fishing. During the above mentioned time his bp was low so he was holding off the irbesartan, it was cut in half strength but he is taking the medication currently . Patient was supposed to cut it 4 ways and some of the pills were bigger than before. HTN: BP controlled today. Checks BP at home. Compliant with medications. Denies any chest pain, palpitations, SOB, swelling in the feet. Careful with diet to avoid salt, trying to eat more fruits andvegetables, exercises regularly Afib : on xeralto and metoprolol and he is doing good No problem-specific Assessment & Plan notes found for this encounter. PAST MEDICAL HISTORY Diagnosis Date Atrial fibrillation (HCC) Cataract both eyes Diabetes (HCC) Dislocated intraocular lens od Hyperlipidemia Hypertension Pseudophakia of both eyes Retinal detachment OD Sleep apnea Type 2 diabetes mellitus with stage 3 chronic kidney disease, without long-term current use of insulin (HCC) 06/07/2020 PAST SURGICAL HISTORY Procedure Laterality Date CHOLECYSTECTOMY HX COLONOSCOPY FLX DX W/COLLJ SPEC WHEN PFRMD 05/09/2019 colonoscopy 5 year recall FNA WITH IMAGING 03/04/14 U/S FNA bilataeral thyroid nodules OTHER SURGICAL HISTORY (PLEASE SPECIFY) HX 04/26/2020 isthmusectomy- PAST SURGICAL HISTORY OF removal of skin from abdomen post weight loss REPAIR RETINAL DETACHMENT SCLERAL BUCKLING 05/23/13 SB (Scleral Buckle) OD TOTAL THYROID LOBECTOMY UNI W/WO ISTHMUSECTOMY Right 04/26/2020 VITRECTOMY MECHANICAL PARS PLANA 05/23/13 PPV (Pars Plana Vitrectomy) OD VITRECTOMY MECHANICAL PARS PLANA 01/05/15 od PPV/removal of dislocated PCIOL/place ACIOL/Peripheral Iridectomy OD XCAPSL CTRC RMVL INSJ IO LENS PROSTH W/O ECP ou Cataract Extraction with PC IOL FAMILY HISTORY Problem Relation Age of Onset Prostate Cancer Father Ischemic Heart Disease Father Stroke Father Stroke Maternal Uncle Alzheimer's Disease Mother No Ocular Disease No Family History Social History Tobacco Use Smoking status: Never Smokeless tobacco: Former Types: Snuff, Chew Quit date: 08/06/1987 Substance Use Topics Alcohol use: No Drug use: No Past medical history, appointments, medications, allergies reviewed. Pertinent Lab/Diagnostic Studies are reviewed and discussed today Current Outpatient Medications: predniSONE (DELTASONE) 20 mg tablet rivaroxaban (XARELTO) 20 mg tablet metoprolol tartrate, short acting, (LOPRESSOR) 50 mg tablet sildenafil (VIAGRA) 100 mg tablet allopurinol (ZYLOPRIM) 300 mg tablet spironolactone (ALDACTONE) 25 mg tablet irbesartan (AVAPRO) 300 mg tablet Review of Systems CONSTITUTIONAL: No fevers, chills night sweats, unintended weight loss CARDIOVASCULAR: No chest pain, dyspnea, palpitations, orthopnea, PND, ankle edema. PULM: No dyspnea, unexplained cough. GI: No dysphagia/odynophagia, problematic reflux, constipation, diarrhea, changes in stool habits, hematochezia, melena. : No new urinary complaints, including dysuria, gross hematuria or pyuria. NEURO: No new balance problems, peripheral weakness/paresthesias or numbness of concern. Physical Exam BP 112/70 Pulse 86 Resp 16 Wt (!) 149.7 kg (330 lb) SpO2 97% BMI 50.18 kg/m General appearance: Well appearing, alert, in no acute distress, well nourished. Skin: Skin color, texture, turgor normal, no suspicious rashes or lesions Head: Normocephalic, no masses, lesions, tenderness or abnormalities Eyes: Anicteric sclera. Pupils are equally round and reactive to light. Extraocular movements are intact. Lungs: Lungs clear to auscultation. No wheezing, rhonchi, rales Heart: RRR without murmur, gallop, or rubs. Extremities: No deformities, edema, skin discoloration, clubbing or cyanosis. Good capillary refill. ASSESSMENT/PLAN: 1. Primary hypertension - ICD9: 401.9, ICD10: I10 (primary diagnosis) - Controlled - Recommend home blood pressure monitoring, to bring results to next visit - Encouraged sodium restriction, DASH or Mediterranean diet - Recommend regular aerobic exercise 2. Erectile dysfunction, unspecified erectile dysfunction type - ICD9: 607.84, ICD10: N52.9 - SILDENAFIL 100 MG TABLET 3. Hypertensive kidney disease with stage 3a chronic kidney disease (HCC) - ICD9: 403.90, 585.3, ICD10: I12.9, N18.31 Rechecking his bmp at this time. 4. Permanent atrial fibrillation (HCC) - ICD9: 427.31, ICD10: I48.21 Still on afib but rate controlled and to cont the xeralto 5. Stage 3a chronic kidney disease (HCC) - ICD9: 585.3, ICD10: N18.31 CKD: Stage 3, recent labs reviewed, shows GFR is stable, not significantly changed from previous labs. Discussed the importance of staying off the NSAIDs naproxen, motrin, brufen, aleve etc and contrast., adequate hydration Keeping blood pressure under control. Also checking his thyroid test. Lin Crabone MD documented in this encounterOhio[facility]04-10-2023 Miscellaneous Notes* Telephone Encounter - Eloisa Velarde RN - 11/13/2022 8:37 AM EDT Pt seen 11/10/22 as recommended. Eloisa Velarde RN * Telephone Encounter - Ailyn Conti APRN.CNP - 11/10/2022 8:39 AM EDT Just reviewed additional my chart message in regards to this. He needs to be come in to be evaluated as his recent BP was 88/50 at cardiology. Chest xray from [facility] reviewed and without any acute disease. Thank you Ailyn Conti APRN.ROSIE * Telephone Encounter - Ailyn Conti APRN.CNP - 11/10/2022 8:27 AM EDT I can send in augmentin for antibiotic. I see he was on a short burst of steroids a month ago. Did this help at all? Also there is an order for a chest xray that really needs completed. Thank you Ailyn Conti APRN.ROSIE * Telephone Encounter - Eloisa Velarde RN - 11/09/2022 1:38 PM EDT Patient's Madie calling to update provider with pt's condition: Pt was seen by Dr. Carbone on 10/31 and was ordered Bactrim DS x 10 days for URI. Pt had z-mark prior to that. calling to state pt completed Bactrim and she doesn't think patient has improved much. No worsened symptoms. States patient continues with: -continued hscmu-sllifqxwdq-axvahm/green -mild SOB (same as before Bactrim) -hoarse voice -decreased appetite -lightheaded at times-mostly when stands up-thinks attributed to lower BP at times -poor energy level -diarrhea about once daily -mild nausea -sleeping ok but gets up early every morning to sit in recliner -has not checked BP at home in several days but was low at recent specialist's office with systolicBP ranging 76-88. Takes BP meds but has held for a few days. Denies: chest pain, back discomfort, severe weakness, fever, chills, sweats, headache, or sore throat -taking mucinex concerned about pt having bronchitis. Asking if provider would be agreeable to ordering possible steroids and another antibiotic for patient? Please advise. Thank you. documented in this encounterOhiohealth [facility] Center04-07-2023 NoteHNO ID: [id number] Author: Ailyn Conti APRN.ERP TECHNICAL LEAD Service: ? Author Type: Nurse Practitioner Type: Progress Notes Filed: 11/13/2022 9:09 AM Note Text: CC: Patient presents with: Cough HPI Edsummer Atwood is a 67 year old male who presents today for follow up on cough and recent low blood pressure. Saw PCP on October 31 for feeling shortness of breath, productive cough with yellow sputum, and sinus congestion. Was prescribed bactrim and completed his dosing. Today present with no change in shortness of breath, still with yellow productive cough, resolving sinus congestion, dull ache across chest without change which he discussed with cardiology, and slight wheezing first thing in the morning. Denies ear pain, chest pressure, increase in chronic nonpitting bilateral lower edema, Takes mucinex without any improvement. Earlier this week he had his eyes suddenly going back and forth and was dizzy for a few minutes. This has not occurred previously or since. BP was notably low at that time so say his conversion man: BP of 88/50 in cardiology appointment. has been holding his irbesartan since this occurred. Mr. Atwood denies headache, chest pain, and palpitations. Patient denies any side effects of his medication(s) and is compliant with their regimen. Last 3 Encounter BP Readings: Date: BP: 11/10/2022 112/64 10/31/2022 132/60 07/18/2022 120/70 REVIEW OF SYSTEMS General: no fevers, no chills, no night sweats, no recurrent infections, no change in appetite, no change in energy, and no significant changes in weight Respiratory: See HPI Cardiovascular: no chest pain, no chest pressure, no palpitations, and no swelling Neurologic: No headache, weakness, numbness, tingling, memory loss, syncope. PAST MEDICAL HISTORY Diagnosis Date Atrial fibrillation (HCC) Cataract both eyes Diabetes (HCC) Dislocated intraocular lens od Hyperlipidemia Hypertension Pseudophakia of both eyes Retinal detachment OD Sleep apnea Type 2 diabetes mellitus with stage 3 chronic kidney disease, without long-term current use of insulin (HCC) 06/07/2020 PAST SURGICAL HISTORY Procedure Laterality Date CHOLECYSTECTOMY HX COLONOSCOPY FLX DX W/COLLJ SPEC WHEN PFRMD 05/09/2019 colonoscopy 5 year recall FNA WITH IMAGING 03/04/14 U/S FNA bilataeral thyroid nodules OTHER SURGICAL HISTORY (PLEASE SPECIFY) HX 04/26/2020 isthmusectomy- PAST SURGICAL HISTORY OF removal of skin from abdomen post weight loss REPAIR RETINAL DETACHMENT SCLERAL BUCKLING 05/23/13 SB (Scleral Buckle) OD TOTAL THYROID LOBECTOMY UNI W/WO ISTHMUSECTOMY Right 04/26/2020 VITRECTOMY MECHANICAL PARS PLANA 05/23/13 PPV (Pars Plana Vitrectomy) OD VITRECTOMY MECHANICAL PARS PLANA 01/05/15 od PPV/removal of dislocated PCIOL/place ACIOL/Peripheral Iridectomy OD XCAPSL CTRC RMVL INSJ IO LENS PROSTH W/O ECP ou Cataract Extraction with PC IOL ALLERGIES Chlorhexidine MEDICATIONS rivaroxaban (XARELTO) 20 mg tablet Take 1 tablet by mouth daily with dinner. metoprolol tartrate, short acting, (LOPRESSOR) 50 mg tablet Take 0.5 tablets by mouth twice daily. sulfamethoxazole-trimethoprim (BACTRIM DS) 800-160 mg per tablet Take 1 tablet by mouth twice daily for 10 days. sildenafil (VIAGRA) 100 mg tablet Take 1 tablet by mouth as needed. Take 30 to 60min before sexual activity allopurinol (ZYLOPRIM) 300 mg tablet Take 1 tablet by mouth twice daily. For gout. spironolactone (ALDACTONE) 25 mg tablet TAKE 1 TABLET BY MOUTH ONCE A DAY. irbesartan (AVAPRO) 300 mg tablet Take 1 tablet by mouth once daily. replaces losartan FAMILY HISTORY Problem Relation Age of Onset Prostate Cancer Father Ischemic Heart Disease Father Stroke Father Stroke Maternal Uncle Alzheimer's Disease Mother No Ocular Disease No Family History Social History Tobacco Use Smoking status: Never Smokeless tobacco: Former Types: Snuff, Chew Quit date: 08/06/1987 Substance Use Topics Alcohol use: No Drug use: No PHYSICAL EXAM BP 112/64 Pulse 70 Temp 36.2 ?C (97.2 ?F) (Temporal) Resp 16 Wt (!) 142 kg (313 lb) SpO2 97% BMI 47.59 kg/m? General Appearance: well appearing, in no acute distress, alert Skin: Skin color, texture, turgor normal for age; Eyes: conjunctiva pink and moist, no icterus, sclera white, non-injected Lungs: Lungs clear to auscultation. No wheezing, rhonchi, rales. Heart: RRR without murmur, gallop, or rubs. No ectopy Health maintenance reviewed with patient: BP CONTROLLED (<130/80) Never done SHINGRIX VACCINE(1 of 2) Never done HEMOGLOBIN/HEMATOCRIT due on 06/03/2020 PNEUMOCOCCAL: 65+(2 - PCV) due on 06/03/2020 COVID-19 VACCINE(3 - Booster for Moderna series) due on 12/23/2020 SERUM CREATININE due on 03/09/2021 ADVANCE DIRECTIVE DISCUSSION Never done INFLUENZA(Season Ended) due on 04/06/2023 ANNUAL PCP TEAM CHRONIC DISEASE VISIT due on 11/01/2023 COLORECTAL CA (more content not included)...[facility]04[facility] History of Present illness Narrative* Ailyn Conti, INSPECTOR FINAL ASSEMBLY CONVEYOR LINE.ERP TECHNICAL LEAD - 11/10/2022 1:54 PM EDT CC: Patient presents with: Cough HPI Edsummer Atwood is a 67 year old male who presents today for follow up on cough and recent low blood pressure. Saw PCP on October 31 for feeling shortness of breath, productive cough with yellow sputum, and sinus congestion. Was prescribed bactrim and completed his dosing. Today present with no change in shortness of breath, still with yellow productive cough, resolving sinus congestion, dull ache across chest without change which he discussed with cardiology, and slight wheezing first thing in the morning. Denies ear pain, chest pressure, increase in chronic nonpitting bilateral lower edema, Takes mucinex without any improvement. Earlier this week he had his eyes suddenly going back and forth and was dizzy for a few minutes. This has not occurred previously or since. BP was notably low at that time so say his conversion man: BPof 88/50 in cardiology appointment. has been holding his irbesartan since this occurred. Mr. Atwood denies headache, chest pain, and palpitations. Patient denies any side effects of his medication(s) and is compliant with their regimen. Last 3 Encounter BP Readings: Date: BP: 11/10/2022 112/64 10/31/2022 132/60 07/18/2022 120/70 REVIEW OF SYSTEMS General: no fevers, no chills, no night sweats, no recurrent infections, no change in appetite, no change in energy, and no significant changes in weight Respiratory: See HPI Cardiovascular: no chest pain, no chest pressure, no palpitations, and no swelling Neurologic: No headache, weakness, numbness, tingling, memory loss, syncope. PAST MEDICAL HISTORY Diagnosis Date Atrial fibrillation (HCC) Cataract both eyes Diabetes (HCC) Dislocated intraocular lens od Hyperlipidemia Hypertension Pseudophakia of both eyes Retinal detachment OD Sleep apnea Type 2 diabetes mellitus with stage 3 chronic kidney disease, without long-term current use of insulin (HCC) 06/07/2020 PAST SURGICAL HISTORY Procedure Laterality Date CHOLECYSTECTOMY HX COLONOSCOPY FLX DX W/COLLJ SPEC WHEN PFRMD 05/09/2019 colonoscopy 5 year recall FNA WITH IMAGING 03/04/14 U/S FNA bilataeral thyroid nodules OTHER SURGICAL HISTORY (PLEASE SPECIFY) HX 04/26/2020 isthmusectomy- PAST SURGICAL HISTORY OF removal of skin from abdomen post weight loss REPAIR RETINAL DETACHMENT SCLERAL BUCKLING 05/23/13 SB (Scleral Buckle) OD TOTAL THYROID LOBECTOMY UNI W/WO ISTHMUSECTOMY Right 04/26/2020 VITRECTOMY MECHANICAL PARS PLANA 05/23/13 PPV (Pars Plana Vitrectomy) OD VITRECTOMY MECHANICAL PARS PLANA 01/05/15 od PPV/removal of dislocated PCIOL/place ACIOL/Peripheral Iridectomy OD XCAPSL CTRC RMVL INSJ IO LENS PROSTH W/O ECP ou Cataract Extraction with PC IOL ALLERGIES Chlorhexidine MEDICATIONS rivaroxaban (XARELTO) 20 mg tablet Take 1 tablet by mouth daily with dinner. metoprolol tartrate, short acting, (LOPRESSOR) 50 mg tablet Take 0.5 tablets by mouth twice daily. sulfamethoxazole-trimethoprim (BACTRIM DS) 800-160 mg per tablet Take 1 tablet by mouth twice dailyfor 10 days. sildenafil (VIAGRA) 100 mg tablet Take 1 tablet by mouth as needed. Take 30 to 60min before sexual activity allopurinol (ZYLOPRIM) 300 mg tablet Take 1 tablet by mouth twice daily. For gout. spironolactone (ALDACTONE) 25 mg tablet TAKE 1 TABLET BY MOUTH ONCE A DAY. irbesartan (AVAPRO) 300 mg tablet Take 1 tablet by mouth once daily. replaces losartan FAMILY HISTORY Problem Relation Age of Onset Prostate Cancer Father Ischemic Heart Disease Father Stroke Father Stroke Maternal Uncle Alzheimer's Disease Mother No Ocular Disease No Family History Social History Tobacco Use Smoking status: Never Smokeless tobacco: Former Types: Snuff, Chew Quit date: 08/06/1987 Substance Use Topics Alcohol use: No Drug use: No PHYSICAL EXAM BP 112/64 Pulse 70 Temp 36.2 C (97.2 F) (Temporal) Resp 16 Wt (!) 142 kg (313 lb) SpO2 97% BMI 47.59 kg/m General Appearance: well appearing, in no acute distress, alert Skin: Skin color, texture, turgor normal for age; Eyes: conjunctiva pink and moist, no icterus, sclera white, non-injected Lungs: Lungs clear to auscultation. No wheezing, rhonchi, rales. Heart: RRR without murmur, gallop, or rubs. No ectopy Health maintenance reviewed with patient: BP CONTROLLED (<130/80) Never done SHINGRIX VACCINE(1 of 2) Never done HEMOGLOBIN/HEMATOCRIT due on 06/03/2020 PNEUMOCOCCAL: 65+(2 - PCV) due on 06/03/2020 COVID-19 VACCINE(3 - Booster for Moderna series) due on 12/23/2020 SERUM CREATININE due on 03/09/2021 ADVANCE DIRECTIVE DISCUSSION Never done INFLUENZA(Season Ended) due on 04/06/2023 ANNUAL PCP TEAM CHRONIC DISEASE VISIT due on 11/01/2023 COLORECTAL CANCER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 Encounter - Kyleigh Burgess LPN - 06/21/2022 8:27 AM EST Patient has been identified by name and date of : Yes Patient phones for refill(s): Requested Prescriptions Pending Prescriptions Disp Refills allopurinol (ZYLOPRIM) 300 mg tablet 180 tablet 3 Sig: Take 1 tablet by mouth twice daily. For gout. Date of last office visit in primary care: 03/25/2021 Last 2 Encounter Wt Readings: Date: Wt: 03/25/2021 134.3 kg (296 lb) 12/17/2020 135.6 kg (299 lb) Previous labs/tests for medication: Not applicable Please advise. Thank you. Kyleigh Burgess LPN documented [facility] Miscellaneous Notes* Telephone Encounter - Lashay Garcia Ma - 11/17/2021 11:13 AM EDT Form received. * Telephone Encounter - Tanika Abad LPN - 11/17/2021 10:14 AM EDT Checking to see if form was received. If so please close this note. Thank you. Tanika Abad LPN * Telephone Encounter - Tanika Abad LPN - 11/14/2021 4:38 PM EDT Eloina with Dr. Tejada, [facility] calling to let you know pt is scheduled for surgery on 12-12-21. Pt needs surgical clearance. They are faxing a form. Apt has been scheduled for 11-28-21. Please watch for form. PH: [phone] FAX: [phone] Tanika Abad LPN documented [facility] encounter[facility] History of Past illness Narrative* Problem Noted Date Resolved Date Type 2 diabetes mellitus wit h stage 3 chronic kidney disease, without long-term current use of insulin 06/07/202012/2020 Persistent proteinuria assoc iated with type 2 diabetes mellitus 03/18/2016 01/30/2019 Arthropathy, unspecified, site unspecified 02/0306/07/2020 Diabetes mellitus type 2, controlled, without co mplications 11/14/2013 10/29/2018 Last Assessment & Plan: DIABETES MELLITUS: Mr. Atwood was last seen 6 months ago. Since our last visit he admits excessive thirst or increased frequency of urination, chest pain or dyspnea , numbness, tingling or pain in extremities, new or unusual visual symptoms, low sugar/hypoglycemic reactions, weight loss/gain, lightheadedness/dizziness. He is not compliant with medication and does not eat a diabetic diet and is tolerating med(s) without any side effects. He reports checking his glucose on not at all schedule with sugars in the <150 range. Patient's last HgA1C was Hemoglobin A1C (%) Date Value 05/16/2016 6.8 02/15/2016 6.6 ) Last Ophthalmology exam was within the past 12 months Morbid obesity 11/14/2013 06/07/2020 Hypokalemia 11/14/2013 06/07/2020 documented as of this encounter (statuses as of 11/17/2021) [facility] of Past illness Narrative* Problem Noted Date Resolved Date Type 2 diabetes mellitus wit h stage 3 chronic kidney disease, without long-term current use of insulin 06/07/202012/2020 Persistent proteinuria assoc iated with type 2 diabetes mellitus 03/18/2016 01/30/2019 Arthropathy, unspecified, site unspecified 02/0306/07/2020 Diabetes mellitus type 2, controlled, without co mplications 11/14/2013 10/29/2018 Last Assessment & Plan: DIABETES MELLITUS: Mr. Atwood was last seen 6 months ago. Since our last visit he admits excessive thirst or increased frequency of urination, chest pain or dyspnea , numbness, tingling or pain in extremities, new or unusual visual symptoms, low sugar/hypoglycemic reactions, weight loss/gain, lightheadedness/dizziness. He is not compliant with medication and does not eat a diabetic diet and is tolerating med(s) without any side effects. He reports checking his glucose on not at all schedule with sugars in the <150 range. Patient's last HgA1C was Hemoglobin A1C (%) Date Value 05/16/2016 6.8 02/15/2016 6.6 ) Last Ophthalmology exam was within the past 12 months Morbid obesity 11/14/2013 06/07/2020 Hypokalemia 11/14/2013 06/07/2020 documented as of this encounter (statuses as of 06/22/2022) [facility] of [facility] illness Narrative* Problem Noted Date Resolved Date Type 2 diabetes mellitus wit h stage 3 chronic kidney disease, without long-term current use of insulin 06/07/202012/2020 Persistent proteinuria assoc iated with type 2 diabetes mellitus 03/18/2016 01/30/2019 Arthropathy, unspecified, site unspecified 02/0306/07/2020 Diabetes mellitus type 2, controlled, without co mplications 11/14/2013 10/29/2018 Last Assessment & Plan: DIABETES MELLITUS: Mr. Atwood was last seen 6 months ago. Since our last visit he admits excessive thirst or increased frequency of urination, chest pain or dyspnea , numbness, tingling or pain in extremities, new or unusual visual symptoms, low sugar/hypoglycemic reactions, weight loss/gain, lightheadedness/dizziness. He is not compliant with medication and does not eat a diabetic diet and is tolerating med(s) without any side effects. He reports checking his glucose on not at all schedule with sugars in the <150 range. Patient's last HgA1C was Hemoglobin A1C (%) Date Value 05/16/2016 6.8 02/15/2016 6.6 ) Last Ophthalmology exam was within the past 12 months Morbid obesity 11/14/2013 06/07/2020 Hypokalemia 11/14/2013 06/07/2020 documented as of this encounter (statuses as of 07/18/2022) [facility] of [facility] illness Narrative* Problem Noted Date Resolved Date Type 2 diabetes mellitus wit h stage 3 chronic kidney disease, without long-term current use of insulin 06/07/202012/2020 Persistent proteinuria assoc iated with type 2 diabetes mellitus 03/18/2016 01/30/2019 Arthropathy, unspecified, site unspecified 02/0306/07/2020 Diabetes mellitus type 2, controlled, without co mplications 11/14/2013 10/29/2018 Last Assessment & Plan: DIABETES MELLITUS: Mr. Atwood was last seen 6 months ago. Since our last visit he admits excessive thirst or increased frequency of urination, chest pain or dyspnea , numbness, tingling or pain in extremities, new or unusual visual symptoms, low sugar/hypoglycemic reactions, weight loss/gain, lightheadedness/dizziness. He is not compliant with medication and does not eat a diabetic diet and is tolerating med(s) without any side effects. He reports checking his glucose on not at all schedule with sugars in the <150 range. Patient's last HgA1C was Hemoglobin A1C (%) Date Value 05/16/2016 6.8 02/15/2016 6.6 ) Last Ophthalmology exam was within the past 12 months Morbid obesity 11/14/2013 06/07/2020 Hypokalemia 11/14/2013 06/07/2020 documented as of this encounter (statuses as of 07/19/2022) [facility] illness Narrative* Problem Noted Date Resolved Date Type 2 diabetes mellitus wit h stage 3 chronic kidney disease, without long-term current use of insulin 06/07/202012/2020 Persistent proteinuria assoc iated with type 2 diabetes mellitus 03/18/2016 01/30/2019 Arthropathy, unspecified, site unspecified 02/0306/07/2020 Diabetes mellitus type 2, controlled, without co mplications 11/14/2013 10/29/2018 Last Assessment & Plan: DIABETES MELLITUS: Mr. Atwood was last seen 6 months ago. Since our last visit he admits excessive thirst or increased frequency of urination, chest pain or dyspnea , numbness, tingling or pain in extremities, new or unusual visual symptoms, low sugar/hypoglycemic reactions, weight loss/gain, lightheadedness/dizziness. He is not compliant with medication and does not eat a diabetic diet and is tolerating med(s) without any side effects. He reports checking his glucose on not at all schedule with sugars in the <150 range. Patient's last HgA1C was Hemoglobin A1C (%) Date Value 05/16/2016 6.8 02/15/2016 6.6 ) Last Ophthalmology exam was within the past 12 months Morbid obesity 11/14/2013 06/07/2020 Hypokalemia 11/14/2013 06/07/2020 documented as of this encounter (statuses as of 07/28/2022) [facility] Narrative* Problem Noted Date Resolved Date Type 2 diabetes mellitus wit h stage 3 chronic kidney disease, without long-term current use of insulin 06/07/202012/2020 Persistent proteinuria assoc iated with type 2 diabetes mellitus 03/18/2016 01/30/2019 Arthropathy, unspecified, site unspecified 02/0306/07/2020 Diabetes mellitus type 2, controlled, without co mplications 11/14/2013 10/29/2018 Last Assessment & Plan: DIABETES MELLITUS: Mr. Atwood was last seen 6 months ago. Since our last visit he admits excessive thirst or increased frequency of urination, chest pain or dyspnea , numbness, tingling or pain in extremities, new or unusual visual symptoms, low sugar/hypoglycemic reactions, weight loss/gain, lightheadedness/dizziness. He is not compliant with medication and does not eat a diabetic diet and is tolerating med(s) without any side effects. He reports checking his glucose on not at all schedule with sugars in the <150 range. Patient's last HgA1C was Hemoglobin A1C (%) Date Value 05/16/2016 6.8 02/15/2016 6.6 ) Last Ophthalmology exam was within the past 12 months Morbid obesity 11/14/2013 06/07/2020 Hypokalemia 11/14/2013 06/07/2020 documented as of this encounter (statuses as of 09/28/2022) [facility] Narrative* Problem Noted Date Resolved Date Type 2 diabetes mellitus wit h stage 3 chronic kidney disease, without long-term current use of insulin 06/07/20200 12/2020 Persistent proteinuria assoc iated with type 2 diabetes mellitus 03/18/2016 01/30/2019 Arthropathy, unspecified, site unspecified 02/0306/07/2020 Diabetes mellitus type 2, controlled, without co mplications 11/14/2013 10/29/2018 Last Assessment & Plan: DIABETES MELLITUS: Mr. Atwood was last seen 6 months ago. Since our last visit he admits excessive thirst or increased frequency of urination, chest pain or dyspnea , numbness, tingling or pain in extremities, new or unusual visual symptoms, low sugar/hypoglycemic reactions, weight loss/gain, lightheadedness/dizziness. He is not compliant with medication and does not eat a diabetic diet and is tolerating med(s) without any side effects. He reports checking his glucose on not at all schedule with sugars in the <150 range. Patient's last HgA1C was Hemoglobin A1C (%) Date Value 05/16/2016 6.8 02/15/2016 6.6 ) Last Ophthalmology exam was within the past 12 months Morbid obesity 11/14/2013 06/07/2020 Hypokalemia 11/14/2013 06/07/2020 documented as of this encounter (statuses as of 10/31/2022) [facility] Narrative* Problem Noted Date Resolved Date Type 2 diabetes mellitus wit h stage 3 chronic kidney disease, without long-term current use of insulin 06/07/202012/2020 Persistent proteinuria assoc iated with type 2 diabetes mellitus 03/18/2016 01/30/2019 Arthropathy, unspecified, site unspecified 02/0306/07/2020 Diabetes mellitus type 2, controlled, without co mplications 11/14/2013 10/29/2018 Last Assessment & Plan: DIABETES MELLITUS: Mr. Atowod was last seen 6 months ago. Since our last visit he admits excessive thirst or increased frequency of urination, chest pain or dyspnea , numbness, tingling or pain in extremities, new or unusual visual symptoms, low sugar/hypoglycemic reactions, weight loss/gain, lightheadedness/dizziness. He is not compliant with medication and does not eat a diabetic diet and is tolerating med(s) without any side effects. He reports checking his glucose on not at all schedule with sugars in the <150 range. Patient's last HgA1C was Hemoglobin A1C (%) Date Value 05/16/2016 6.8 02/15/2016 6.6 ) Last Ophthalmology exam was within the past 12 months Morbid obesity 11/14/2013 06/07/2020 Hypokalemia 11/14/2013 06/07/2020 documented as of this encounter (statuses as of 11/13/2022) [facility] Narrative* Problem Noted Date Resolved Date Type 2 diabetes mellitus wit h stage 3 chronic kidney disease, without long-term current use of insulin 06/07/202012/2020 Persistent proteinuria assoc iated with type 2 diabetes mellitus 03/18/2016 01/30/2019 Arthropathy, unspecified, site unspecified 02/0306/07/2020 Diabetes mellitus type 2, controlled, without co mplications 11/14/2013 10/29/2018 Last Assessment & Plan: DIABETES MELLITUS: Mr. Atwood was last seen 6 months ago. Since our last visit he admits excessive thirst or increased frequency of urination, chest pain or dyspnea , numbness, tingling or pain in extremities, new or unusual visual symptoms, low sugar/hypoglycemic reactions, weight loss/gain, lightheadedness/dizziness. He is not compliant with medication and does not eat a diabetic diet and is tolerating med(s) without any side effects. He reports checking his glucose on not at all schedule with sugars in the <150 range. Patient's last HgA1C was Hemoglobin A1C (%) Date Value 05/16/2016 6.8 02/15/2016 6.6 ) Last Ophthalmology exam was within the past 12 months Morbid obesity 11/14/2013 06/07/2020 Hypokalemia 11/14/2013 06/07/2020 documented as of this encounter (statuses as of 11/13/2022) [facility] Narrative* Problem Noted Date Resolved Date Type 2 diabetes mellitus wit h stage 3 chronic kidney disease, without long-term current use of insulin 06/07/202012/2020 Persistent proteinuria assoc iated with type 2 diabetes mellitus 03/18/2016 01/30/2019 Arthropathy, unspecified, site unspecified 02/0306/07/2020 Diabetes mellitus type 2, controlled, without co mplications 11/14/2013 10/29/2018 Last Assessment & Plan: DIABETES MELLITUS: Mr. Atwood was last seen 6 months ago. Since our last visit he admits excessive thirst or increased frequency of urination, chest pain or dyspnea , numbness, tingling or pain in extremities, new or unusual visual symptoms, low sugar/hypoglycemic reactions, weight loss/gain, lightheadedness/dizziness. He is not compliant with medication and does not eat a diabetic diet and is tolerating med(s) without any side effects. He reports checking his glucose on not at all schedule with sugars in the <150 range. Patient's last HgA1C was Hemoglobin A1C (%) Date Value 05/16/2016 6.8 02/15/2016 6.6 ) Last Ophthalmology exam was within the past 12 months Morbid obesity 11/14/2013 06/07/2020 Hypokalemia 11/14/2013 06/07/2020 documented as of this encounter (statuses as of 01/11/2023) [facility] Narrative* Problem Noted Date Resolved Date Type 2 diabetes mellitus wit h stage 3 chronic kidney disease, without long-term current use of insulin 06/07/202012/2020 Persistent proteinuria assoc iated with type 2 diabetes mellitus 03/18/2016 01/30/2019 Arthropathy, unspecified, site unspecified 02/0306/07/2020 Diabetes mellitus type 2, controlled, without co mplications 11/14/2013 10/29/2018 Last Assessment & Plan: DIABETES MELLITUS: Mr. Atwood was last seen 6 months ago. Since our last visit he admits excessive thirst or increased frequency of urination, chest pain or dyspnea , numbness, tingling or pain in extremities, new or unusual visual symptoms, low sugar/hypoglycemic reactions, weight loss/gain, lightheadedness/dizziness. He is not compliant with medication and does not eat a diabetic diet and is tolerating med(s) without any side effects. He reports checking his glucose on not at all schedule with sugars in the <150 range. Patient's last HgA1C was Hemoglobin A1C (%) Date Value 05/16/2016 6.8 02/15/2016 6.6 ) Last Ophthalmology exam was within the past 12 months Morbid obesity 11/14/2013 06/07/2020 Hypokalemia 11/14/2013 06/07/2020 documented as of this encounter (statuses as of 01/19/2023) [facility] Narrative* Problem Noted Date Diagnosed Date Resolved Date Type 2 diabetes mellitus wit h stage 3 chronic kidney disease, without long-term current use of insulin 06/07/2020 09/10/2020 Persistent proteinuria assoc iated with type 2 diabetes mellitus 03/18/2016 01/30/2019 Arthropathy, unspecified, site unspecified 02/03/2014 06/07/2020 Diabetes mellitus type 2, co ntrolled, without complications 11/14/2013 10/29/2018 Last Assessment & Plan: DIABETES MELLITUS: Mr. Atwood was last seen 6 months ago. Since our last visit he admits excessive thirst or increased frequency of urination, chest pain or dyspnea , numbness, tingling or pain in extremities, new or unusual visual symptoms, low sugar/hypoglycemic reactions, weight loss/gain, lightheadedness/dizziness. He is not compliant with medication and does not eat a diabetic diet and is tolerating med(s) without any side effects. He reports checking his glucose on not at all schedule with sugars in the <150 range. Patient's last HgA1C was Hemoglobin A1C (%) Date Value 05/16/2016 6.8 02/15/2016 6.6 ) Last Ophthalmology exam was within the past 12 months Morbid obesity 11/14/2013 06/07/2020 Hypokalemia 11/14/2013 06/07/2020 documented as of this encounter (statuses as of 03/09/2023) [facility] Narrative* Problem Noted Date Diagnosed Date Resolved Date Type 2 diabetes mellitus wit h stage 3 chronic kidney disease, without long-term current use of insulin 06/07/2020 09/10/2020 Persistent proteinuria assoc iated with type 2 diabetes mellitus (HCC) 03/18/2016 01/30/2019 Arthropathy, unspecified, site unspecified 02/03/2014 06/07/2020 Diabetes mellitus type 2, co ntrolled, without complications 11/14/2013 10/29/2018 Last Assessment & Plan: DIABETES MELLITUS: Mr. Atwood was last seen 6 months ago. Since our last visit he admits excessive thirst or increased frequency of urination, chest pain or dyspnea , numbness, tingling or pain in extremities, new or unusual visual symptoms, low sugar/hypoglycemic reactions, weight loss/gain, lightheadedness/dizziness. He is not compliant with medication and does not eat a diabetic diet and is tolerating med(s) without any side effects. He reports checking his glucose on not at all schedule with sugars in the <150 range. Patient's last HgA1C was Hemoglobin A1C (%) Date Value 05/16/2016 6.8 02/15/2016 6.6 ) Last Ophthalmology exam was within the past 12 months Morbid obesity 11/14/2013 06/07/2020 Hypokalemia 11/14/2013 06/07/2020 documented as of this encounter (statuses as of 05/25/2023) [facility] Narrative* Problem Noted Date Diagnosed Date Resolved Date Type 2 diabetes mellitus wit h stage 3 chronic kidney disease, without long-term current use of insulin 06/07/2020 09/10/2020 Persistent proteinuria assoc iated with type 2 diabetes mellitus (HCC) 03/18/2016 01/30/2019 Arthropathy, unspecified, site unspecified 02/03/2014 06/07/2020 Diabetes mellitus type 2, co ntrolled, without complications 11/14/2013 10/29/2018 Last Assessment & Plan: DIABETES MELLITUS: Mr. Atwood was last seen 6 months ago. Since our last visit he admits excessive thirst or increased frequency of urination, chest pain or dyspnea , numbness, tingling or pain in extremities, new or unusual visual symptoms, low sugar/hypoglycemic reactions, weight loss/gain, lightheadedness/dizziness. He is not compliant with medication and does not eat a diabetic diet and is tolerating med(s) without any side effects. He reports checking his glucose on not at all schedule with sugars in the <150 range. Patient's last HgA1C was Hemoglobin A1C (%) Date Value 05/16/2016 6.8 02/15/2016 6.6 ) Last Ophthalmology exam was within the past 12 months Morbid obesity 11/14/2013 06/07/2020 Hypokalemia 11/14/2013 06/07/2020 documented as of this encounter (statuses as of 05/31/2023) [facility]arrative* Problem Noted Date Diagnosed Date Resolved Date Type 2 diabetes mellitus wit h stage 3 chronic kidney disease, without long-term current use of insulin 06/07/2020 09/10/2020 Persistent proteinuria assoc iated with type 2 diabetes mellitus 03/18/2016 01/30/2019 Arthropathy, unspecified, site unspecified 02/03/2014 06/07/2020 Diabetes mellitus type 2, co ntrolled, without complications 11/14/2013 10/29/2018 Last Assessment & Plan: DIABETES MELLITUS: Mr. Atwood was last seen 6 months ago. Since our last visit he admits excessive thirst or increased frequency of urination, chest pain or dyspnea , numbness, tingling or pain in extremities, new or unusual visual symptoms, low sugar/hypoglycemic reactions, weight loss/gain, lightheadedness/dizziness. He is not compliant with medication and does not eat a diabetic diet and is tolerating med(s) without any side effects. He reports checking his glucose on not at all schedule with sugars in the <150 range. Patient's last HgA1C was Hemoglobin A1C (%) Date Value 05/16/2016 6.8 02/15/2016 6.6 ) Last Ophthalmology exam was within the past 12 months Morbid obesity 11/14/2013 06/07/2020 Hypokalemia 11/14/2013 06/07/2020 documented as of this encounter (statuses as of 06/10/2023) [facility] Narrative* Problem Noted Date Diagnosed Date Resolved Date Type 2 diabetes mellitus wit h stage 3 chronic kidney disease, without long-term current use of insulin 06/07/2020 09/10/2020 Persistent proteinuria assoc iated with type 2 diabetes mellitus 03/18/2016 01/30/2019 Arthropathy, unspecified, site unspecified 02/03/2014 06/07/2020 Diabetes mellitus type 2, co ntrolled, without complications 11/14/2013 10/29/2018 Last Assessment & Plan: DIABETES MELLITUS: Mr. Atwood was last seen 6 months ago. Since our last visit he admits excessive thirst or increased frequency of urination, chest pain or dyspnea , numbness, tingling or pain in extremities, new or unusual visual symptoms, low sugar/hypoglycemic reactions, weight loss/gain, lightheadedness/dizziness. He is not compliant with medication and does not eat a diabetic diet and is tolerating med(s) without any side effects. He reports checking his glucose on not at all schedule with sugars in the <150 range. Patient's last HgA1C was Hemoglobin A1C (%) Date Value 05/16/2016 6.8 02/15/2016 6.6 ) Last Ophthalmology exam was within the past 12 months Morbid obesity 11/14/2013 06/07/2020 Hypokalemia 11/14/2013 06/07/2020 documented as of this encounter (statuses as of 07/04/2023) [facility]11[facility] History of Past illness Narrative* Problem Noted Date Diagnosed Date Resolved Date Type 2 diabetes mellitus wit h stage 3 chronic kidney disease, without long-term current use of insulin 06/07/2020 09/10/2020 Persistent proteinuria assoc iated with type 2 diabetes mellitus (HCC) 03/18/2016 01/30/2019 Arthropathy, unspecified, site unspecified 02/03/2014 06/07/2020 Diabetes mellitus type 2, co ntrolled, without complications 11/14/2013 10/29/2018 Last Assessment & Plan: DIABETES MELLITUS: Mr. Atwood was last seen 6 months ago. Since our last visit he admits excessive thirst or increased frequency of urination, chest pain or dyspnea , numbness, tingling or pain in extremities, new or unusual visual symptoms, low sugar/hypoglycemic reactions, weight loss/gain, lightheadedness/dizziness. He is not compliant with medication and does not eat a diabetic diet and is tolerating med(s) without any side effects. He reports checking his glucose on not at all schedule with sugars in the <150 range. Patient's last HgA1C was Hemoglobin A1C (%) Date Value 05/16/2016 6.8 02/15/2016 6.6 ) Last Ophthalmology exam was within the past 12 months Morbid obesity 11/14/2013 06/07/2020 Hypokalemia 11/14/2013 06/07/2020 documented as of this encounter (statuses as of 10/04/2023) [facility] Diagnosis Erectile dysfunction, unspecified erectile dysfunction type [facility] Diagnosis Upper respiratory tract infection, unspecified type- Primary Permanent atrial fibrillation (HCC) Atrial fibrillation Essential hypertension Unspecified essential hypertension Class 3 severe obesity without serious comorbidity with body mass index (BMI) of 45.0 to 49.9 in adult, unspecified obesity type (HCC) documented [facility] this encounter [facility] Diagnosis Upper respiratory disease- Primary Other and unspecified diseases of upper respiratory tract Essential hypertension Unspecified essential hypertension [facility] Diagnosis Primary hypertension- Primary Unspecified essential hypertension Erectile dysfunction, unspecified erectile dysfunction type Hypertensive kidney disease with stage 3a chronic kidney disease (HCC) Permanent atrial fibrillation (HCC) Atrial fibrillation Stage 3a chronic kidney disease (HCC) Prediabetes Other abnormal glucose Multiple thyroid nodules Nontoxic multinodular goiter documented [facility] Diagnosis Dysphagia, unspecified type- Primary Elevated TSH Nonspecific abnormal results of thyroid function study Vitamin D deficiency Unspecified vitamin D deficiency [facility]* Diagnosis Dysphagia, unspecified type Elevated TSH Nonspecific abnormal results of thyroid function study [facility]* Diagnosis Thyroid nodule- Primary Nontoxic uninodular goiter documented in this encounter [facility] for referral (narrative)* Diagnostic Procedure Only (Routine) - Authorized Specialty Diagnoses / Procedures Referred By Contac t Referred To Contact US IMAGING Diagnoses Dysphagia, unspecified type Elevated TSH Procedures US THYROID/PARATHYROID US SOFT TISSUE HEAD & NECK REAL TIME IMGE Lin Grider MD [address] [place] [address] Us Imaging Referral ID Status Reason Start Date Expiration Date Visits Requested Visits Authorized [id number] Authorized Auto-Generat ed Referral 01/17/2023 02/16/2024 1 1 [facility] for referral (narrative)* Diagnostic Procedure Only (Routine) - Closed Specialty Diagnoses / Procedures Referred By Nighat t Referred To Contact US IMAGING Diagnoses Dysphagia, unspecified type Elevated TSH Procedures US THYROID/PARATHYROID US SOFT TISSUE HEAD & NECK REAL TIME IMGE Lin Grider MD [address] [place] [address] [place] [address] Referral ID Status Reason Start Date Expiration Date V isits Requested Visits Authorized [id number] Closed Auto-Generate d Referral 01/17/2023 02/16/2024 1 1 [facility] for referral (narrative)* Diagnostic Procedure Only (Routine) - Authorized Specialty Diagnoses / Procedures [facility] Referred To Contact US IMAGING Diagnoses Thyroid nodule Procedures US THYROID/PARATHYROID US SOFT TISSUE HEAD & NECK REAL TIME IMGE Kandy Conner PA-C [address] [place] [address] [place] [address] Referral ID Status Reason Start Date Expiration Date Visits Requested Visits Authorized [id number] Authorized Auto-Generat ed Referral 02/01/2024 03/01/2024 1 1 [facility] Summary Purpose Family History No Family History Records FoundNo Family History Records FoundThere may be information available, but it has not been provided by the sender.No Family History Records Found Advance Directives Documents on File Type Date Recorded Patient Pot Filler Expl anation Advance Directive(s) 05/09/2019 8:49 AM Advance Directive(s) 02/26/2018 1:05 PM Chief Complaint Chief Complaint Description Start Date right hip pain Preliminary chief co mplaint data, not yet signed by the author as of Instructions Instruction Description Start Date CompletedPatient advised to follow-up with Primary Care Physician for BMI management. Assessments There may be information available, but it has not been provided by the sender. Review of System There may be information available, but it has not been provided by the sender. History of Present Illness There may be information available, but it has not been provided by the sender. Reason for Referral Specialty Diagnoses / Procedures Referred By Nighat wray Referred To Contact Orthopedics Diagnoses Hip arthritis Procedures CONSULT TO ORTHOPAEDICS OFFICE/OUTPATIENT [facility] 60-74 MINUTES Lin Carbone MD [address] [place] [address] Referral ID Status Reason Start Date Expiration Date Visits Requested Visits Authorized [id number] Pending Review PCP Requested Referral 2 07/18/2023 1 1 Additional Source Comments (unrecognized sect ion and content) No Status Records FoundNo Status Records FoundNo Status Records Found INFORMATION SOURCE (unrecogn ized section and content) DATE CREATED AUTHOR AUTHOR'S ORGANIZ ATION 04/21/2019 [facility] DATE CREATED AUTHOR AUTHOR'S ORGANIZ ATION 07/06/2023 [facility] Reason for Visit (unrecogniz ed section and content) Reason Comments eye surgery clearance Reason Onset Date Comments Refill Request 06/20/2022 Reason Comments Same Day Appointment cough,sob, sore thr oat home covid negative Reason Comments Cough Reason Onset Date Comments Refill Request 07/26/2022 Reason Comments Chart prep Reason Comments F/U Diabetes 3 Month Reason Comments Patient Update Patient Request Reason Comments Recheck 3 month DM Reason Comments abnormal results Reason Onset Date Comments Refill Request 05/31/2023 Reason Comments Radiology US Specialty Diagnoses / Procedures Referred By Nighat wray Referred To Contact US IMAGING Diagnoses Dysphagia, unspecified type Elevated TSH Procedures US THYROID/PARATHYROID US SOFT TISSUE HEAD & NECK REAL TIME IMGE DOCM Lin Carbone MD [address] [facility] [place] [address] [facility] [id number] Referral ID Status Reason Start Date Expiration Date V isits Requested Visits Authorized [id number] Closed Auto-Generate d Referral 01/17/2023 02/16/2024 1 1 Reason Comments Results Orders Reason Comments Results Source Comments (unrecognize d section and content) In the event this informatio n is protected by the Federal Confidentiality of Alcohol and Drug Abuse Patient Records regulations: The Federal rules restrict any use of the information to criminally investigate or prosecute any alcohol or drug abuse patient.[facility] the event this information is protected by the Federal Confidentiality of Alcohol and Drug Abuse Patient Records regulations: The Federal rules restrict any use of the information to criminally investigate or prosecute any alcohol or drug abuse patient.[facility] Center[facility] the event this information is protected by the Federal Confidentiality of Alcohol and Drug Abuse Patient Records regulations: The Federal rules restrict any use of the information to criminally investigate or prosecute any alcohol or drug abuse patient.[facility] Center[facility] the event this information is protected by the Federal Confidentiality of Alcohol and Drug Abuse Patient Records regulations: The Federal rules restrict any use of the information to criminally investigate or prosecute any alcohol or drug abuse patient.[facility] the event this information is protected by the Federal Confidentiality of Alcohol and Drug Abuse Patient Records regulations: The Federal rules restrict any use of the information to criminally investigate or prosecute any alcohol or drug abuse patient.[facility] Center[facility] the event this information is protected by the Federal Confidentiality of Alcohol and Drug Abuse Patient Records regulations: The Federal rules restrict any use of the information to criminally investigate or prosecute any alcohol or drug abuse patient.[facility] Center[facility] the event this information is protected by the Federal Confidentiality of Alcohol and Drug Abuse Patient Records regulations: The Federal rules restrict any use of the information to criminally investigate or prosecute any alcohol or drug abuse patient.[facility] Center[facility] the event this information is protected by the Federal Confidentiality of Alcohol and Drug Abuse Patient Records regulations: The Federal rules restrict any use of the information to criminally investigate or prosecute any alcohol or drug abuse patient.[facility] Center[facility] the event this information is protected by the Federal Confidentiality of Alcohol and Drug Abuse Patient Records regulations: The Federal rules restrict any use of the information to criminally investigate or prosecute any alcohol or drug abuse patient.[facility] Center[facility] the event this information is protected by the Federal Confidentiality of Alcohol and Drug Abuse Patient Records regulations: The Federal rules restrict any use of the information to criminally investigate or prosecute any alcohol or drug abuse patient.[facility] Center[facility] the event this information is protected by the Federal Confidentiality of Alcohol and Drug Abuse Patient Records regulations: The Federal rules restrict any use of the information to criminally investigate or prosecute any alcohol or drug abuse patient.[facility] Center[facility] the event this information is protected by the Federal Confidentiality of Alcohol and Drug Abuse Patient Records regulations: The Federal rules restrict any use of the information to criminally investigate or prosecute any alcohol or drug abuse patient.[facility] Center[facility] the event this information is protected by the Federal Confidentiality of Alcohol and Drug Abuse Patient Records regulations: The Federal rules restrict any use of the information to criminally investigate or prosecute any alcohol or drug abuse patient.[facility] Center[facility] the event this information is protected by the Federal Confidentiality of Alcohol and Drug Abuse Patient Records regulations: The Federal rules restrict any use of the information to criminally investigate or prosecute any alcohol or drug abuse patient.[facility] CenterIn the event this information is protected by the Federal Confidentiality of Alcohol and Drug Abuse Patient Records regulations: The Federal rules restrict any use of the information to criminally investigate or prosecute any alcohol or drug abuse patient.[facility] CenterIn the event this information is protected by the [facility] Confidentiality of Alcohol and Drug Abuse Patient Records regulations: The Federal rules restrict any use of the information to criminally investigate or prosecute any alcohol or drug abuse patient.[facility] CenterIn the event this information is protected by the Federal Confidentiality of Alcohol and Drug Abuse Patient Records regulations: The Federal rules restrict any use of the information to criminally investigate or prosecute any alcohol or drug abuse patient.[facility] Care Teams (unrecognized sec tion and content) Funeral Pre Arrangement Counselor Relationship Specialty Start Date End Date Lin Carbone MD [address] [place] [address] PCP - General Internal Medicine 01/10/17 Funeral Pre Arrangement Counselor Relationship Specialty Start Date End Date Lin Carbone MD [address] [place] [address] PCP - General Internal Medicine 01/10/17 Funeral Pre Arrangement Counselor Relationship Specialty Start Date End Date Lin Carbone MD [address] [place] [address] PCP - General Internal Medicine 01/10/17 Funeral Pre Arrangement Counselor Relationship Specialty Start Date End Date Lin Carbone MD [address] [place] [address] PCP - General Internal Medicine 01/10/17 Funeral Pre Arrangement Counselor Relationship Specialty Start Date End Date Lin Carbone MD [address] [place] [address] PCP - General Internal Medicine 01/10/17 Funeral Pre Arrangement Counselor Relationship Specialty Start Date End Date Lin Carbone MD [address] [place] [address] PCP - General Internal Medicine 01/10/17 Funeral Pre Arrangement Counselor Relationship Specialty Start Date End Date Lin Carbone MD [address] [place] [address] PCP - General Internal Medicine 01/10/17 Funeral Pre Arrangement Counselor Relationship Specialty Start Date End Date Lin Carbone MD [address] [place] [address] PCP - General Internal Medicine 01/10/17 Funeral Pre Arrangement Counselor Relationship Specialty Start Date End Date Lin Carbone MD [address] [place] [address] PCP - General Internal Medicine 01/10/17 Funeral Pre Arrangement Counselor Relationship Specialty Start Date End Date Lin Carbone MD [address] [place] [address] PCP - General Internal Medicine 01/10/17 Funeral Pre Arrangement Counselor Relationship Specialty Start Date End Date Lin Carbone MD [address] [place] [address] PCP - General Internal Medicine 01/10/17 Funeral Pre Arrangement Counselor Relationship Specialty Start Date End Date Lin Carbone MD [address] [place] [address] PCP - General Internal Medicine 01/10/17 FOR RECORDS PERTAINING TO PATIENTS WHO ARE OR HAVE BEEN ENROLLED IN A CHEMICAL DEPENDENCY/SUBSTANCEABUSE PROGRAM, SOME INFORMATION MAY BE OMITTED. This clinical summary was aggregated from multiple sources. Caution should be exercised in using it in the provision of clinical care. This summary normalizes information from multiple sources, and as a consequence, information in this document may materially change the coding, format and clinical context of patient data. In addition, data may be omitted in some cases. CLINICAL DECISIONS SHOULD BE BASED ON THE PRIMARY CLINICAL RECORDS. [employer] [facility]. provides no warranty or guarantee of the accuracy or completeness of information in this document.
[2023-10-11 11:34] LABS: Amphetamine Urine VISTA NEGATIVE (<1000 ng/mL); Barbiturate Urine VISTA NEGATIVE (< 200 ng/mL); Benzodiazepine Urine VISTA NEGATIVE (< 200 ng/mL); Cocaine Urine VISTA NEGATIVE (< 300 ng/mL); Ecstacy Urine VISTA NEGATIVE (< 500 ng/mL); Methadone Urine VISTA NEGATIVE (< 300 ng/mL); PCP Urine VISTA NEGATIVE (< 25 ng/mL); THC Urine VISTA NEGATIVE (< 50 ng/mL); Vista UDS pH Range 4
== END | disposition home or self-care (01) ==
LOC: LAB 10:13
PROVIDERS: PCP Internal Medicine; Referring Provider Anesthesiology Pain Medicine; Visit Provider Anesthesiology Pain Medicine
DX: F11.20 Opioid dependence, uncomplicated (principal)
CPT/HCPCS: 80307

== ENCOUNTER → 2024-01-03 | Outpatient (CLI) | payer MEDICARE, SELFPAY ==
[2024-01-03 12:38] LABS: Amphetamine Urine VISTA NEGATIVE (<1000 ng/mL); Barbiturate Urine VISTA NEGATIVE (< 200 ng/mL); Benzodiazepine Urine VISTA NEGATIVE (< 200 ng/mL); Cocaine Urine VISTA NEGATIVE (< 300 ng/mL); Ecstacy Urine VISTA NEGATIVE (< 500 ng/mL); Methadone Urine VISTA NEGATIVE (< 300 ng/mL); PCP Urine VISTA NEGATIVE (< 25 ng/mL); THC Urine VISTA NEGATIVE (< 50 ng/mL); Vista UDS pH Range 5
== END | disposition home or self-care (01) ==
LOC: LAB 10:56
PROVIDERS: PCP Internal Medicine; Referring Provider Anesthesiology Pain Medicine; Visit Provider Anesthesiology Pain Medicine
DX: F11.20 Opioid dependence, uncomplicated (principal)
CPT/HCPCS: 80307

== ENCOUNTER → 2024-05-22 | Outpatient (CLI) | payer MEDICARE, SELFPAY ==
[2024-05-22 14:38] LABS: Amphetamine Urine VISTA NEGATIVE (<1000 ng/mL); Barbiturate Urine VISTA NEGATIVE (< 200 ng/mL); Benzodiazepine Urine VISTA NEGATIVE (< 200 ng/mL); Cocaine Urine VISTA NEGATIVE (< 300 ng/mL); Ecstacy Urine VISTA NEGATIVE (< 500 ng/mL); Methadone Urine VISTA NEGATIVE (< 300 ng/mL); PCP Urine VISTA NEGATIVE (< 25 ng/mL); THC Urine VISTA NEGATIVE (< 50 ng/mL); Vista UDS pH Range 5
== END | disposition home or self-care (01) ==
LOC: LAB 12:19
PROVIDERS: PCP Internal Medicine; Referring Provider Anesthesiology Pain Medicine; Visit Provider Anesthesiology Pain Medicine
DX: F11.20 Opioid dependence, uncomplicated (principal)
CPT/HCPCS: 80307

== ENCOUNTER → 2024-09-29 | Outpatient (CLI) | payer MEDICARE, SELFPAY ==
--- NOTE | 2024-09-29 12:12 | ADUUE_ITS ---
Reason For Study Reason For Study: Pulsatile Mass Lt Palm LEFT Left Radial velocity = 56 cm/sec. Left Ulnar velocity = 102 cm/sec. Aneurysm noted Lt Deep Cook Arch A measuring 2.26cm x 2.72cm. 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
== END | disposition home or self-care (01) ==
LOC: CVS 12:09
PROVIDERS: PCP Internal Medicine; Referring Provider Physician Assistant Medical; Visit Provider Physician Assistant Medical
DX: I72.1 Aneurysm of artery of upper extremity (principal)
CPT/HCPCS: 93931

== ENCOUNTER → 2024-10-29 | Outpatient (CLI) | payer MEDICARE, SELFPAY ==
[2024-10-29 15:53] LABS: Absolute Lymphocyte Count 1.21 X10^3/uL (0.83-4.51); Absolute Neutrophil Count 7.8 X10^3/uL (2.0-7.7); Basophil# 0.03 X10^3/uL; Basophil% 0.3 % (0-1); Eosinophil# 0.09 X10^3/uL; Eosinophils% 0.9 % (0-5); Hematocrit 47.5 % (40-54); Hemoglobin 15.3 g/dL (13.0-16.5); Lymphocyte # 1.21 X10^3/ul (0.83-4.51); Lymphocyte % 12.5 % (19-41); Mean Corp Hgb Conc 32.2 g/dL (32-36); Mean Corpuscular Hgb 31.7 pg (27.0-32.0); Mean Corpuscular Volume 98.5 fL (80-94); Mean Platelet Vol. 10.2 fl (6.2-12.0); Monocyte# 0.56 X10^3/uL; Monocyte% 5.8 % (0-10); NRBC Flagged by Analyzer 0 % (0-5); Neutrophil # 7.76 X10^3/uL (2.7-7.7); Neutrophil % 80.1 % (47-70); Platelet Count 235 K/mm3 (150-450); RBC Distribution Width CV 15.8 % (11.6-14.6); RBC Distribution Width SD 57.5 fl (35.1-43.9); Red Blood Count 4.82 M/mm3 (4.6-6.2); White Blood Count 9.7 K/mm3 (4.4-11.0)
[2024-10-29 20:25] LABS: ALB/GLOB Ratio 1.1 RATIO (0.9-2.4); AST(SGOT) 19 U/L (<=37); Alanine Aminotransfer ALT/SGPT 19 U/L (<=46); Albumin, Serum 3.8 g/dL (3.4-4.8); Alkaline Phosphatase 157 U/L (40-129); Anion Gap 10 (5-15); BUN 31 mg/dL (4-19); BUN/Creat Ratio 27.8 RATIO (10-20); Calcium,Total 9.5 mg/dL (7.6-11.0); Carbon Dioxide 23.3 mmol/L (21.0-32.0); Chloride 103 mmol/L (98-108); Creatinine, Serum 1.12 mg/dL (0.70-1.20); EST Glomerular Filtration Rate 70 (>60); Globulin 3.4 g/dL (2.2-4.2); Glucose 144 mg/dL (70-99); PSA,Total - Annual Screen 1.26 ng/mL (0.02-4.00); Potassium 4.9 mmol/L (3.3-5.1); Protein, Total 7.2 g/dL (5.9-8.4); Sodium Level 137 mmol/L (133-145); Total Bilirubin 0.72 mg/dL (0.00-1.30)
[2024-10-29 20:35] LABS: Cholesterol 159 mg/dL (<=200); High Density Lipoprotein 47 mg/dL; Low Density Lipoprotein Calc. 97 mg/dL; Triglycerides 72 mg/dL; Uric Acid 2.9 mg/dL (3.5-7.2); Very Low Density Lipoprotein 14 mg/dL (5-40); cholesterol:hdl ratio screen 3.37
[2024-10-30 09:48] LABS: Hemoglobin A1c 8.1 % (<=5.6)
== END | disposition home or self-care (01) ==
LOC: BIMLAB 14:21
PROVIDERS: PCP Internal Medicine; Referring Provider Internal Medicine; Visit Provider Internal Medicine
DX: E03.9 Hypothyroidism, unspecified (principal); Z12.5 Encounter for screening for malignant neoplasm of prostate; R73.9 Hyperglycemia, unspecified; M10.9 Gout, unspecified; I10 Essential (primary) hypertension
CPT/HCPCS: 36415; 80053; 80061; 83036; 84153; 84443; 84550; 85025; G0103

== ENCOUNTER 2024-11-05 08:00 | Day surgery (SDC) | payer MEDICARE, SELFPAY ==
[2024-11-05 06:52] VITALS: BMI 54.8
[2024-11-05 07:06] LABS: Hematocrit 46.6 % (40-54); Mean Corp Hgb Conc 32.2 g/dL (32-36); Mean Corpuscular Hgb 31.8 pg (27.0-32.0); Mean Corpuscular Volume 98.7 fL (80-94); Mean Platelet Vol. 9.4 fl (6.2-12.0); Platelet Count 174 K/mm3 (150-450); RBC Distribution Width CV 15.6 % (11.6-14.6); RBC Distribution Width SD 57.1 fl (35.1-43.9); Red Blood Count 4.72 M/mm3 (4.6-6.2); White Blood Count 8.7 K/mm3 (4.4-11.0)
[2024-11-05 07:26] LABS: Anion Gap 10 (5-15); BUN 25 mg/dL (4-19); BUN/Creat Ratio 19.7 RATIO (10-20); Calcium,Total 9.2 mg/dL (7.6-11.0); Carbon Dioxide 24.4 mmol/L (21.0-32.0); Chloride 104 mmol/L (98-108); Creatinine, Serum 1.28 mg/dL (0.70-1.20); EST Glomerular Filtration Rate 60 (>60); Estimated Creatinine Clearance 77.24 ml/min (50-250); Glucose 148 mg/dL (70-99); Potassium 4.9 mmol/L (3.3-5.1); Sodium Level 139 mmol/L (133-145)
--- NOTE | 2024-11-05 17:15 | PCM.OPRPT ---
Operative Report (Standard) Operative Information Date of Procedure: 11/05/24 Pre-Operative Diagnosis: Left ulnar artery aneurysm Post-Operative Diagnosis: Same Surgery/Procedure Performed: Thoracic aortogram, left upper extremity angiogram personnel arbitrator: No Type of Anesthesia: Local and Sedation,Conscious RN Documented Start/Stop Times: Operation Date: 12/02/24 08:05 <No data on this case meets the specified criteria> Procedure Start Time: 08:15 Procedure Stop Time: 09:45 Select all DRAINS/GRAFTS/IMPLANTS that apply: None Estimated Blood Loss: 7 Specimen collected: No Description of surgery: HPI: Patient is a 69-year-old male who was found to have a 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 He presents for angiography to define his vessel anatomy and aid in operative planning for treatment of this aneurysm. Of note the patient is morbidly obese and is unable to lay flat. He was positioned on multiple pillows which afforded some comfort though he continued to be restless and in this position the right femoral artery was not visible under ultrasound assessment due to his pannus and the depth of the vessel. Plan is for right radial access with plans to selectively cannulate the contralateral subclavian via the aortic arch and perform selective angiography of the left upper extremity. Description of procedure: Upon obtaining form consent and verification correct patient procedure site patient was taken to the [facility] he was positioned prepped and draped in usual sterile fashion. Time was performed conscious sedation ministered Versed and fentanyl. Skin overlying the right radial artery was anesthetized with 1% lidocaine the vessel accessed with a micropuncture needle and wire. This was exchanged for a radial 6 Bangladeshi sheath through which nitroglycerin, verapamil, and heparin was infused. Through the 6 Bangladeshi sheath a Bentson wire and angled Glidewire were advanced advancing into the ascending aorta. Digital subtraction arch aortogram was performed which revealed the origin of the left subclavian artery and revealed the patient had a type III arch though there was minimal atherosclerotic burden. The patient was then heparinized and utilizing multiple wire and catheter combinations we attempted to cannulate the contralateral subclavian origin. We were able to advance an angled Glidewire into the subclavian however this did not track distal enough to support provide support for catheter advancement. Ultimately after multiple efforts and exhausting all various catheter shapes we felt that this was not going to be successful. Next skin overlying the left radial artery was anesthetized with 1% lidocaine the vessel accessed with a micropuncture needle wire. This then exchanged for a 5 Bangladeshi radial sheath through which nitroglycerin, verapamil and heparin were infused. Hand-injection subtraction angiography of the left upper extremity was then performed from this access site. The sheath was occlusive within the radial artery so we are unable to obtain assessment of the radial artery perfusion territory of the hand. The vessel was patent with no significant atherosclerosis and was small in caliber. The ulnar artery was larger in caliber with no significant atherosclerosis or stenosis. There was luminal irregularity in the vessel as it entered into the hand consistent with the location of the aneurysm. The flow channel was of similar caliber to the more proximal vessel. The patient appeared to have an incomplete arch with digit branches for second, third, fourth, fifth emanating from the ulnar artery inflow. There did not appear to be any contrast reflux into or toward the radial artery within the hand. The 5 Bangladeshi sheath were then exchanged for a micropuncture sheath and the hope that a smaller caliber sheath would allow some antegrade flow through the radial artery. Hand-injection imaging was performed with injection of this location but again there was no significant contrast transit beyond the access site due to catheter size. Radial bands were then placed over each of the access sites and the sheath withdrawn. The patient was then taken to the recovery area with plan discharged to home. Plan is for return with anesthesia and likely brachial cutdown with antegrade access in order to obtain the remaining images required. Surgical Findings: See above Complications Complications: No
--- NOTE | 2024-11-18 15:28 | PAT.ANE_ITS ---
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 When Was Last Pacemaker Check QUESTION #4 FULL TEXT: You/Your Family Experience fever (hyperthermia) with Anesthesia Last Oral Intake Last Oral intake: Last Oral Intake NPO since 00:00 11/05/24 07:15 Meds taken in AM with sips of water? Meds patient instructed to take am of surgery PONV PONV - food service supervisor: PONV - food service supervisor Female No 11/18/24 13:37 HX of Motion Sickness No 11/18/24 13:37 HX of N/V After Surgery No 11/18/24 13:37 Non-Smoker Yes 11/18/24 13:37 Duration of Surgery greater Yes 11/18/24 13:37 than 60 minutes Number of Risk Factors 2 11/18/24 13:37 PONV Score Moderate Risk 11/18/24 13:37 Height & Weight Height & Weight: Anesthesia: Height & Weight Height 5 ft 7 in 11/05/24 07:15 Weight: 158.757 kg 11/05/24 07:15 Body Mass Index (BMI) 54.8 11/05/24 06:52 Respiratory Assessment Respiratory Assessment - food service supervisor: Respiratory Tract Infection Hx - food service supervisor Hx Respiratory Tract Infection No 11/18/24 13:37 STOP Sleep Apnea STOP Sleep Apnea - food service supervisor: STOP Sleep Apnea - food service supervisor Hx Hypertension Yes: CONTROLLED WITH MED 11/18/24 13:37 Hx Sleep Apnea No 11/18/24 13:37 CPAP Yes 10/07/24 14:48 BIPAP No 10/07/24 14:48 Do you snore loudly (louder No 11/18/24 13:37 than talking or can be heard Do you often feel tired/ No 11/18/24 13:37 fatigued/ sleepy during daytime? Has anyone observed you stop No 11/18/24 13:37 breathing during sleep? STOP Results Negative 11/18/24 13:37 QUESTION #5 FULL TEXT : Do you snore loudly (louder than talking or can be heard through closed doors)? 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 Specify any problems Hx of Preganancy in last 3 N/A 11/18/24 13:37 Months Nurse Filling Out Transfusion DSCHRIBER 11/18/24 13:37 & Questions: Date: 11/18/24 11/18/24 13:37 Time: 13:41 11/18/24 13:37 Patient unable to answer at this time (ie. confused, unrespo /Reproduction History /Reproductive History - food service supervisor: /Reproductive Hx- food service supervisor Hx Now No 11/18/24 13:37 Gestational Age (in weeks): EDC: Hx Hx Para Hx Section SAB No 11/18/24 13:37 [facility] Medical History (Updated 11/18/24 @ 13:55 by Kanika Soto) Complete edentulism, class III Wears glasses Thyroid disease Diabetes Back pain Migraine Dietary restriction Smoker History of Holter monitoring History of stress test History of pain when walking Hx of echocardiogram Hx of sleep apnea Health care maintenance Erectile dysfunction Atrial fibrillation Hypothyroidism Gout Injury of left palm Aneurysm of left ulnar artery Elephantiasis Thyroid mass COVID-19 (10/22/22) Longstanding persistent atrial fibrillation Multinodular goiter Osteoarthritis of hips, bilateral Hyperlipidemia Essential hypertension Home Medications ?Medication ?Instructions ?Recorded ?Last Taken ?Type hydrocodone-acetaminophen 5-325mg 1 tab PO BID 1 Unknown History 5mg-325mg Handicap Parking Placard #1 ea 09/13/20 Unknown Rx magnesium oxide 500 mg PO DAILY 09/06/21 Unk nown History metoprolol tartrate 50 mg tablet 25 mg PO BID 09/06/21 11/05/24 History rosuvastatin 10 mg tablet 10 mg PO DAILY #90 tabs 11/0511/05/24 Rx irbesartan 300 mg tablet 150 mg (1/2 x 300 mg) PO RADHA LY #90 05/16/24 Unknown Rx tabs allopurinol 300 mg tablet 300 mg PO BID filled as cour tesy 06/02/24 11/05/24 Rx until establishes with new PCP #180 tabs betamethasone, augmented 0.05 % 1 applic topical BID 1 09/28/23 Unknown History topical cream levothyroxine 50 mcg tablet 50 mcg PO DAILY #90 tabs 0 08/11/24 11/05/24 Rx sildenafil 50 mg tablet 50 mg PO DAILY PRN PRN #30 t abs 10/29/24 Unknown Rx blood sugar diagnostic (FreeStyle #100 ea 11/01/24 Unk nown Rx Lite Strips) blood-glucose meter (FreeStyle #1 ea 11/01/24 Unknown Rx Lite Meter kit) lancets 28 gauge (FreeStyle #200 ea 11/01/24 Unknown R x Lancets) metformin 500 mg tablet,extended 500 mg PO BID #60 tab s 11/01/24 11/04/24 Rx release 24 hr rivaroxaban 20 mg tablet 20 mg PO QHS 11/18/24 Unknow n History tirzepatide 2.5 mg/0.5 mL 2.5 mg subcut PAEZ 11/18/24 Un known History subcutaneous pen injector Allergy/AdvReac Type Severity Reaction Status Date / Time chlorhexidine (From Allergy Unknown rash, Verified 11/18/24 13:28 Hibiclesangeetha) itching atorvastatin AdvReac Intermediate Myalgias Verified 11/18/24 13:28 Family History Mother Dementia Father Prostate cancer CAD (coronary artery disease) Brain bleed Hemorrhagic CVA Heart disease Hypertension Thyroid disorder Uncle CVA (cerebral vascular accident) Brother Diabetes Cancer prostate Surgical History (Updated 11/18/24 @ 13:55 by Kanika Soto) history right thyroid lobectomy (~04/26/20) Status post panniculectomy History of vitrectomy (01/05/15) Hx of detached retina repair (05/23/13) History of retinal tear History of cataract extraction with lens replacement (~2011) History of cholecystectomy (03/04/14) History of left heart catheterization (2002) History of cardioversion (03/14/17) Social History Smoking Status: Current some day smoker tobacco type: pipe alcohol intake: current alcohol intake frequency: a few times a week Alcohol type: hard liquor substance use type: does not use caffeine: Yes Type: coffee Number of servings: 3 Audit: Pertinent Findings Pertinent Findings EKG Perinent findings: February 05, 2024. Atrial fibrillation. RSR pattern in V1?Nondiagnostic. Echo (EF%) pertinent findings: June 14, 2023. Ejection fraction 65%. There is no aortic stenosis. Consult pertinent findings: February 05, 2024. Dr. Neal. 1. Longstanding persistent atrial fibrillation?chronic?continue metoprolol and Xarelto. 2. Essential hypertension?chronic?continue current management. 3. Mitral regurgitation?acute-trivial by echo in 2019. Additional pertinent findings: Holter monitor. 06/14/2023. 100% of scan noted to be in atrial fibrillation. Total of 14 PVCs. No runs. 1 episode of chest tightness on patient's diary correlated with A-fib on the scan. Recommendation Anesthesia Recommendation Anesthesia recommendation: OPTIMIZED for anesthesia
== END 2024-11-05 18:00 | disposition home or self-care (01) ==
PROVIDERS: PCP Internal Medicine; Referring Provider Surgery Trauma Surgery; Visit Provider Surgery Trauma Surgery
DX: I72.1 Aneurysm of artery of upper extremity (principal); I48.11 Longstanding persistent atrial fibrillation; E66.01 Morbid (severe) obesity due to excess calories; E11.9 Type 2 diabetes mellitus without complications; I10 Essential (primary) hypertension; E78.5 Hyperlipidemia, unspecified; F17.290 Nicotine dependence, other tobacco product, uncomplicated; Z79.01 Long term (current) use of anticoagulants; E07.9 Disorder of thyroid, unspecified; I73.89 Other specified peripheral vascular diseases
CPT/HCPCS: 36200; 36245; 36415; 75605; 75710; 80048; 85027; 99152; 99153; C1769; C1894; Q9967

== ENCOUNTER 2024-12-02 05:23 | Day surgery (SDC) | payer MEDICARE, SELFPAY ==
[2024-12-02] VITALS (16 sets, daily range): BP systolic 81–125; BP diastolic 54–67; PULSE 58–92; RESP 16–18; TEMP 36.1–36.8; O2SAT 90–99; BMI 54.0
[2024-12-02] MEDS: Lactated Ringers 1,000 ML 15 ML IV (06:30)
--- NOTE | 2024-12-02 06:36 | PCM.PRE.AN2 ---
ASA Classification* ASA Classification ASA Classification: 3 Assessment & Plan Anesthesia* Anesthesia Assessment Anesthesia Assessment: Discussed sedation and/or anesthesia options, risks, benefits, and alternatives with patient/parents/legal guardian/POA. Questions invited. The patient/parents/legal guardian/POA seems to understand and agrees to proceed with anesthesia plan. Reviewed the physical assessment, medical history, allergy history and patient home medications list prior to surgery/procedure/anesthetic and documented any changes. Performed airway and anesthesia risk assessments. Anesthesia Type Anesthesia Type: MAC History Source History Obtained from:: Patient and Chart Anesthesia Focused Assessment* Temperature: 98.2 F Pulse Rate: 58 Blood Pressure: 125/67 Respiratory Rate: 18 Pulse Ox: 98 Oxygen Delivery Method: Room Air Airway Assessment Mouth opens: >3 cm Mallampati Score: III Teeth Condition: Dentures (Full upper and lower dentures. They are out.) Neck Range of motion (ROM): Limited ROM (Severe decrease in extension) Focused Labs Anesthesia Preop lab: CBC WBC 8.7 K/mm3 (4.4-11.0) 11/05/24 06:50 11/05/24 RBC 4.72 M/mm3 (4.6-6.2) 11/05/24 06:50 11/05/24 Hgb 15.0 g/dL (13.0-16.5) 11/05/24 06:50 11/05/24 Hct 46.6 % (40-54) 11/05/24 06:50 11/05/24 Plt Count 174 K/mm3 (150-450) 11/05/24 06:50 11/05/24 CHEMISTRY Potassium 4.9 mmol/L (3.3-5.1) 11/05/24 06:50 11/05/24 Sodium 139 mmol/L (133-145) 11/05/24 06:50 11/05/24 BUN 25 mg/dL (4-19) H 11/05/24 06:50 11/05/24 Creatinine 1.28 mg/dL (0.70-1.20) H 11/05/24 06:50 11/05/24 Glucose 148 mg/dL (70-99) H 11/05/24 06:50 11/05/24 TSH 3.890 uIU/mL (0.300-4.200) 10/29/24 14:00 10/29/24 COAG Pre-Assessment Diagnosis/Proposed Procedure Planned Operative Procedure(s): Angiogram, left upper extremity. 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 When Was Last Pacemaker Check QUESTION #4 FULL TEXT: You/Your Family Experience fever (hyperthermia) with Anesthesia Last Oral Intake Last Oral intake: Last Oral Intake NPO since 03:30 12/02/24 06:25 Meds taken in AM with sips of Yes 12/02/24 06:25 water? 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 Female HX of Motion Sickness HX of N/V After Surgery Non-Smoker Duration of Surgery greater than 60 minutes Number of Risk Factors PONV Score Height & Weight Height & Weight: Anesthesia: Height & Weight Height 5 ft 7 in 12/02/24 06:25 Weight: 156.489 kg 12/02/24 06:25 Body Mass Index (BMI) 54.0 12/02/24 06:25 Respiratory Assessment Respiratory Assessment - loader operator: Respiratory Tract Infection Hx - loader operator Hx Respiratory Tract Infection No 10/07/24 14:48 STOP Sleep Apnea STOP Sleep Apnea - loader operator: STOP Sleep Apnea - loader operator Hx Hypertension Yes: ON MED 10/07/24 14:48 Hx Sleep Apnea Yes 10/07/24 14:48 CPAP Yes 10/07/24 14:48 BIPAP No 10/07/24 14:48 Do you snore loudly (louder than talking or can be heard Do you often feel tired/ fatigued/ sleepy during daytime? Has anyone observed you stop breathing during sleep? STOP Results QUESTION #5 FULL TEXT : Do you snore loudly (louder than talking or can be heard through closed doors)? 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 Specify any problems Hx of Preganancy in last 3 Months Nurse Filling Out Transfusion & Questions: Date: Time: Patient unable to answer at this time (ie. confused, unrespo /Reproduction History /Reproductive History - loader operator: /Reproductive Hx- loader operator Hx Now Gestational Age (in weeks): EDC: Hx Hx Para Hx Section SAB Active Medications Active Medications: Current Medications Generic Name Dose Route Start Last Admin Trade Name Freq PRN Reason Stop Dose Admin Lactated Ringer's 1,000 mls @ 15 mls/hr 12/02/24 05:45 12/02/24 06:30 IV 15 mls/hr .Q48H MAYTE Administration PFSH Medical History Complete edentulism, class III Wears glasses Thyroid disease Diabetes Back pain Migraine Dietary restriction Smoker History of Holter monitoring History of stress test History of pain when walking Hx of echocardiogram Hx of sleep apnea Health care maintenance Erectile dysfunction Atrial fibrillation Hypothyroidism Gout Injury of left palm Aneurysm of left ulnar artery Elephantiasis Thyroid mass COVID-19 (10/22/22) Longstanding persistent atrial fibrillation Multinodular goiter Osteoarthritis of hips, bilateral Hyperlipidemia Essential hypertension Home Medications ?Medication ?Instructions ?Recorded ?Last Taken ?Type hydrocodone-acetaminophen 5-325mg 1 tab PO BID 08/31/20 Unknown History 5mg-325mg Handicap Parking Placard #1 ea 09/13/20 Unknown Rx magnesium oxide 500 mg PO DAILY 09/06/21 Unknown History metoprolol tartrate 50 mg tablet 25 mg PO BID 09/06/21 12/02/24 03:30 History rosuvastatin 10 mg tablet 10 mg PO DAILY #90 tabs 12/03/23 11/05/24 Rx irbesartan 300 mg tablet 150 mg (1/2 x 300 mg) PO DAILY #90 05/16/24 12/02/24 03:30 Rx tabs allopurinol 300 mg tablet 300 mg PO BID filled as courtesy 06/02/24 12/02/24 03:30 Rx until establishes with new PCP #180 tabs betamethasone, augmented 0.05 % 1 applic topical BID 07/28/24 Unknown History topical cream levothyroxine 50 mcg tablet 50 mcg PO DAILY #90 tabs 08/11/24 12/02/24 03:30 Rx sildenafil 50 mg tablet 50 mg PO DAILY PRN PRN #30 tabs 10/29/24 Unknown Rx blood sugar diagnostic (FreeStyle #100 ea 11/01/24 Unknown Rx Lite Strips) blood-glucose meter (FreeStyle #1 ea 11/01/24 Unknown Rx Lite Meter kit) lancets 28 gauge (FreeStyle #200 ea 11/01/24 Unknown Rx Lancets) metformin 500 mg tablet,extended 500 mg PO BID #60 tabs 11/01/24 11/04/24 Rx release 24 hr rivaroxaban 20 mg tablet 20 mg PO QHS 11/18/24 11/28/24 History tirzepatide 2.5 mg/0.5 mL 2.5 mg subcut PAEZ 11/18/24 11/23/24 History subcutaneous pen injector Allergy/AdvReac Type Severity Reaction Status Date / Time chlorhexidine (From Allergy Unknown rash, Verified 12/02/24 06:15 Hibiclens) itching atorvastatin AdvReac Intermediate Myalgias Verified 12/02/24 06:15 Family History Mother Dementia Father Prostate cancer CAD (coronary artery disease) Brain bleed Hemorrhagic CVA Heart disease Hypertension Thyroid disorder Uncle CVA (cerebral vascular accident) Brother Diabetes Cancer prostate Surgical History history right thyroid lobectomy (~04/26/20) Status post panniculectomy History of vitrectomy (01/05/15) Hx of detached retina repair (05/23/13) History of retinal tear History of cataract extraction with lens replacement (~2011) History of cholecystectomy (03/04/14) History of left heart catheterization (2002) History of cardioversion (03/14/17) Social History Smoking Status: Current some day smoker tobacco type: pipe alcohol intake: current alcohol intake frequency: a few times a week Alcohol type: hard liquor substance use type: does not use caffeine: Yes Type: coffee Number of servings: 3 Review of Systems (Anesthesia) ROS Narrative System reviewed and no additional complaints, except as documented.
[2024-12-02 06:56] LABS: Bedside Glucose 104 mg/dL (74-106)
--- NOTE | 2024-12-02 07:22 | HP.PCM_ITS ---
HPI - General HPI Narrative CHARMAINE LONG, is a 69 M who presents with left ulnar artery aneurysm. He previously underwent attempted selective angiogram to define anatomy but has significant limitations with positioning due to body habitus and his aortic arch anatomy. He is here now for left brachial cutdown for access. [facility] Medical History Complete edentulism, class III Wears glasses Thyroid disease Diabetes Back pain Migraine Dietary restriction Smoker History of Holter monitoring History of stress test History of pain when walking Hx of echocardiogram Hx of sleep apnea Health care maintenance Erectile dysfunction Atrial fibrillation Hypothyroidism Gout Injury of left palm Aneurysm of left ulnar artery Elephantiasis Thyroid mass COVID-19 (10/22/22) Longstanding persistent atrial fibrillation Multinodular goiter Osteoarthritis of hips, bilateral Hyperlipidemia Essential hypertension Home Medications ?Medication ?Instructions ?Recorded ?Last Taken ?Type hydrocodone-acetaminophen 5-325mg 1 tab PO BID 1 Unknown History 5mg-325mg Handicap Parking Placard #1 ea 09/13/20 Unknown Rx magnesium oxide 500 mg PO DAILY 09/06/21 Unk nown History metoprolol tartrate 50 mg tablet 25 mg PO BID 09/06/21 12/02/24 03:30 History rosuvastatin 10 mg tablet 10 mg PO DAILY #90 tabs 11/0511/05/24 Rx irbesartan 300 mg tablet 150 mg (1/2 x 300 mg) PO RADHA LY #90 05/16/24 12/02/24 03:30 Rx tabs allopurinol 300 mg tablet 300 mg PO BID filled as cour tesy 06/02/24 12/02/24 03:30 Rx until establishes with new PCP #180 tabs betamethasone, augmented 0.05 % 1 applic topical BID 1 09/28/23 Unknown History topical cream levothyroxine 50 mcg tablet 50 mcg PO DAILY #90 tabs 0 08/11/24 12/02/24 03:30 Rx sildenafil 50 mg tablet 50 mg PO DAILY PRN PRN #30 t abs 10/29/24 Unknown Rx blood sugar diagnostic (FreeStyle #100 ea 11/01/24 Unk nown Rx Lite Strips) blood-glucose meter (FreeStyle #1 ea 11/01/24 Unknown Rx Lite Meter kit) lancets 28 gauge (FreeStyle #200 ea 11/01/24 Unknown R x Lancets) metformin 500 mg tablet,extended 500 mg PO BID #60 tab s 11/01/24 11/04/24 Rx release 24 hr rivaroxaban 20 mg tablet 20 mg PO QHS 11/18/24 History tirzepatide 2.5 mg/0.5 mL 2.5 mg subcut PAEZ 11/18/24 History subcutaneous pen injector Allergy/AdvReac Type Severity Reaction Status Date / Time chlorhexidine (From Allergy Unknown rash, Verified 12/02/24 06:15 Hibiclens) itching atorvastatin AdvReac Intermediate Myalgias Verified 12/02/24 06:15 Family History Mother Dementia Father Prostate cancer CAD (coronary artery disease) Brain bleed Hemorrhagic CVA Heart disease Hypertension Thyroid disorder Uncle CVA (cerebral vascular accident) Brother Diabetes Cancer prostate Surgical History history right thyroid lobectomy (~04/26/20) Status post panniculectomy History of vitrectomy (01/05/15)
--- NOTE | 2024-12-02 07:22 | PCM.HP.STD ---
HPI - General HPI Narrative CHARMAINE LONG, is a 69 M who presents with left ulnar artery aneurysm. He previously underwent attempted selective angiogram to define anatomy but has significant limitations with positioning due to body habitus and his aortic arch anatomy. He is here now for left brachial cutdown for access. [facility] Medical History Complete edentulism, class III Wears glasses Thyroid disease Diabetes Back pain Migraine Dietary restriction Smoker History of Holter monitoring History of stress test History of pain when walking Hx of echocardiogram Hx of sleep apnea Health care maintenance Erectile dysfunction Atrial fibrillation Hypothyroidism Gout Injury of left palm Aneurysm of left ulnar artery Elephantiasis Thyroid mass COVID-19 (10/22/22) Longstanding persistent atrial fibrillation Multinodular goiter Osteoarthritis of hips, bilateral Hyperlipidemia Essential hypertension Home Medications ?Medication ?Instructions ?Recorded ?Last Taken ?Type hydrocodone-acetaminophen 5-325mg 1 tab PO BID 08/31/20 Unknown History 5mg-325mg Handicap Parking Placard #1 ea 09/13/20 Unknown Rx magnesium oxide 500 mg PO DAILY 09/06/21 Unknown History metoprolol tartrate 50 mg tablet 25 mg PO BID 09/06/21 12/02/24 03:30 History rosuvastatin 10 mg tablet 10 mg PO DAILY #90 tabs 12/03/23 11/05/24 Rx irbesartan 300 mg tablet 150 mg (1/2 x 300 mg) PO DAILY #90 05/16/24 12/02/24 03:30 Rx tabs allopurinol 300 mg tablet 300 mg PO BID filled as courtesy 06/02/24 12/02/24 03:30 Rx until establishes with new PCP #180 tabs betamethasone, augmented 0.05 % 1 applic topical BID 07/28/24 Unknown History topical cream levothyroxine 50 mcg tablet 50 mcg PO DAILY #90 tabs 08/11/24 12/02/24 03:30 Rx sildenafil 50 mg tablet 50 mg PO DAILY PRN PRN #30 tabs 10/29/24 Unknown Rx blood sugar diagnostic (FreeStyle #100 ea 11/01/24 Unknown Rx Lite Strips) blood-glucose meter (FreeStyle #1 ea 11/01/24 Unknown Rx Lite Meter kit) lancets 28 gauge (FreeStyle #200 ea 11/01/24 Unknown Rx Lancets) metformin 500 mg tablet,extended 500 mg PO BID #60 tabs 11/01/24 11/04/24 Rx release 24 hr rivaroxaban 20 mg tablet 20 mg PO QHS 11/18/24 11/28/24 History tirzepatide 2.5 mg/0.5 mL 2.5 mg subcut PAEZ 11/18/24 11/23/24 History subcutaneous pen injector Allergy/AdvReac Type Severity Reaction Status Date / Time chlorhexidine (From Allergy Unknown rash, Verified 12/02/24 06:15 Hibiclens) itching atorvastatin AdvReac Intermediate Myalgias Verified 12/02/24 06:15 Family History Mother Dementia Father Prostate cancer CAD (coronary artery disease) Brain bleed Hemorrhagic CVA Heart disease Hypertension Thyroid disorder Uncle CVA (cerebral vascular accident) Brother Diabetes Cancer prostate Surgical History history right thyroid lobectomy (~04/26/20) Status post panniculectomy History of vitrectomy (01/05/15) Hx of detached retina repair (05/23/13) History of retinal tear History of cataract extraction with lens replacement (~2011) History of cholecystectomy (03/04/14) History of left heart catheterization (2002) History of cardioversion (03/14/17) Social History Smoking Status: Current every day smoker (Patient did not smoke today.) tobacco type: pipe alcohol intake: current alcohol intake frequency: a few times a week Alcohol type: hard liquor substance use type: does not use caffeine: Yes Type: coffee Number of servings: 3 ROS Constitutional Constitutional: Denies chills, fever(s), frequent falls, lethargy or weakness Eyes Eyes: Denies blind spots, change in vision or loss of vision ENT HEENT: Denies bleeding gums, hoarseness or sore throat Cardiovascular Cardiovascular: Denies abdominal pain, bluish discoloration of hand/feet, chest pain with activity, claudication, cold extremities, cyanosis, dyspnea on exertion, erythema on extremities, irregular heart rhythm, leg edema, leg ulcers, numbness in extremities or weakness in extremities Respiratory/Chest Respiratory/Chest: Denies cough, excessive phlegm production, shortness of breath at rest, shortness of breath with exertion or wheezing Gastrointestinal Gastrointestinal: Denies anorexia, change in stool character, constipation, diarrhea, melena or rectal bleeding Genitourinary Genitourinary: Denies dysuria or hematuria Musculoskeletal Musculoskeletal: Denies abnormal gait Integumentary Integumentary: Reports other Details: ; Denies erythema, non-healing lesions or wounds Neurologic Neurologic: Denies abnormal speech, focal weakness, headache(s), loss of vision, numbness, paresthesias or sensory deficit Hematologic/Lymphatic Hematologic/Lymphatic: Denies easy bleeding, easy bruising or lymphadenopathy Vital Signs Vital Signs Vital Signs: 12/02/24 06:25 12/02/24 06:25 12/02/24 06:50 Temperature 98.2 F 98.2 F Temperature Source Temporal Pulse Rate 58 L 58 L Respiratory Rate 18 18 Respiratory Pattern Normal Blood Pressure 125/67 H 125/67 H Blood Pressure Mean 86 Blood Pressure Source Monitor Blood Pressure Position Sitting Blood Pressure Location Right Forearm Pulse Ox 98 98 Oxygen Delivery Method Room Air Room Air Weight Weight: 345 lb Body Mass Index (BMI) 54.0 Physical Exam Const alert, oriented x3, no apparent distress and healthy appearing General Appearance: cooperative; Negative for combative or lethargic Orientation / Consciousness: awake Exam Limitations: no limitations HEENT Head and Scalp: normocephalic and atraumatic Eyes EOMs intact bilaterally General Eye: normal appearance of both eyes Neck full ROM General: trachea midline Resp normal respiratory effort and no use of accessory muscles Effort and Inspection: Negative for labored, stridor or audible wheezes Cardio regular rate and regular rhythm Peripheral Pulses: brachial pulses present and radial pulses present Back/Spine Cervical Spine: cervical ROM normal Extremity full ROM and normal capillary refill Skin no rashes or lesions noted and no wounds Neuro oriented x3, CN's II-XII intact bilaterally, no focal motor deficits and no sensory deficits noted Psych thought process normal, cooperative, affect normal, speech normal and activity/motor behavior normal Results Lab / Micro Data Labs: Laboratory Results - last 24 hr 12/02/24 06:03: POC Glucose 104 Assessment & Plan Assessment/Plan (1) Hypothenar hammer syndrome: PLAN: -LUE angio via brachial cut down
--- NOTE | 2024-12-02 09:17 | DCINST_ITS ---
Discharge Instructions Diet Discharge Diet: No restrictions Activity May shower in (days): 2 Additional Activity Instructions:: do not submerge incision for 14 days Dressing / Incision Call your doctor if your incision/area has: Sudden Increased Bleeding, Increased Pain/ Swelling, Increased Redness and Foul Smelling Discharge Call your doctor if you observe: Coldness, Increased Pain and Numbness or Tingling Remove Dressing in: 2 days Cleanse incision/area with: Soap & Water Follow Up Care Test Results: Test results from this visit will be discussed in further detail at your follow- up appointment, if applicable. Discharge Plan Admission Attending Provider: Bart Espinosa Primary Care Provider: Scooter Tomlin Instructions Print Language: Montenegrin Discharge Orders/Prescriptions Prescriptions: Continued hydrocodone-acetaminophen 5-325 mg tablet 1 tab PO BID Patient Comments: TAKE 1 TABLET BY MOUTH TWICE DAILY metoprolol tartrate 50 mg tablet 25 mg PO BID Patient Comments: TAKE ONE-HALF OF A TABLET BY MOUTH TWICE A DAY. magnesium oxide 500 mg tablet 500 mg PO DAILY betamethasone, augmented 0.05 % cream 1 applic topical BID sildenafil 50 mg tablet 50 mg PO DAILY PRN (Reason: PRN) Qty: 30 0RF Rx Instructions: administer 30 minutes to 4 hours before activity tirzepatide 2.5 mg/0.5 mL pen injector 2.5 mg subcut PAEZ Rx Instructions: for 4 weeks (DME) Handicap Parking Placard See Rx Instructions .Route .MEDSUPPLY Qty: 1 0RF Rx Instructions: As directed rosuvastatin 10 mg tablet 10 mg PO DAILY Qty: 90 3RF irbesartan 300 mg tablet 150 mg PO DAILY Qty: 90 3RF allopurinol 300 mg tablet 300 mg PO BID Qty: 180 3RF levothyroxine 50 mcg tablet 50 mcg PO DAILY Qty: 90 3RF metformin 500 mg tablet extended release 24 hr 500 mg PO BID Qty: 60 1RF (DME) lancets [FreeStyle Lancets] 28 gauge misc See Rx Instructions .MEDSUPPLY Qty: 200 3RF Rx Instructions: check blood glucose daily for type 2 DM (DME) blood-glucose meter [FreeStyle Lite Meter] Kit See Rx Instructions .MEDSUPPLY Qty: 1 0RF Rx Instructions: As directed, check blood glucose daily for type 2 DM (DME) FreeStyle Lite Strips Strip See Rx Instructions .MEDSUPPLY Qty: 100 3RF Rx Instructions: check blood glucose daily for type 2 DM Held rivaroxaban 20 mg tablet 20 mg PO QHS Hold Instructions: Resume on 12/03/24. Referrals / Follow Up: Scooter Tomlin MD [Primary Care Provider] - Disposition Disposition (needs filled in before D/C Order can be placed): Home, Self Care
--- NOTE | 2024-12-02 09:52 | PCM.POST.ANE ---
Anesthesia: Postop Eval I Current Vital Signs Temperature: 97.2 F Pulse Rate: 86 Blood Pressure: 100/66 Respiratory Rate: 16 Pulse Ox: 99 Oxygen Delivery Method: Venturi Mask Oxygen Flow Rate (L/min): 6 Assessment Airway patent: Yes Spontaneous unlabored respirations: Yes Mental status: Awake and Calm nausea: No Vomiting: No Anesthesia Complication: No Fluid Hydration Crystalloid volume administer (ml): 500 Total IV fluid infused: 500 Progress Note Anesthesia document: Postop Eval 1 completed: Yes
--- NOTE | 2024-12-02 17:00 | POSTOPAN2_ITS ---
Anesthesia Postop Eval I Sum Postop Eval Completion status Anesthesia document: Postop Eval 1 completed: Yes Anesthesia Postop Eval I Summary Anesthesia Postop Eval I Summary: Anesthesia Postop Eval I: Assessment Summary Airway patent Yes 12/02/24 09:53 [email or web address] Spontaneous unlabored Yes 12/02/24 09:53 [email or web address] respirations Mental status Awake,Calm 12/02/24 09:53 [email or web address] nausea No 12/02/24 09:53 [email or web address] Vomiting No 12/02/24 09:53 [email or web address] Anesthesia Postop Eval I: Fluid Summary Crystalloid volume administer 500 12/02/24 09:53 [email or web address] (ml) Colloids volume administered ( ml) Blood Product volume administered (ml) Total IV fluid infused 500 12/02/24 09:53 [email or web address] Anesthesia Postop Eval I: Summary Notes Anesthesia Complication No 12/02/24 09:53 [email or web address] Anesthesia Complication Comment: Post-operative progress note Anesthesia: Postop Eval II Evaluation Mental status: Awake and Calm Pain Level: 2 nausea: No Vomiting: No Complications Anesthesia Complication: No
--- NOTE | 2024-12-02 17:00 | PCM.POSTANE2 ---
Anesthesia Postop Eval I Sum Postop Eval Completion status Anesthesia document: Postop Eval 1 completed: Yes Anesthesia Postop Eval I Summary Anesthesia Postop Eval I Summary: Anesthesia Postop Eval I: Assessment Summary Airway patent Yes 12/02/24 09:53 ORTHOPEDIC RADIOLOGIC [email or web address] Spontaneous unlabored Yes 12/02/24 09:53 ORTHOPEDIC RADIOLOGIC [email or web address] respirations Mental status Awake,Calm 12/02/24 09:53 ORTHOPEDIC RADIOLOGIC [email or web address] nausea No 12/02/24 09:53 ORTHOPEDIC RADIOLOGIC [email or web address] Vomiting No 12/02/24 09:53 ORTHOPEDIC RADIOLOGIC [email or web address] Anesthesia Postop Eval I: Fluid Summary Crystalloid volume administer 500 12/02/24 09:53 ORTHOPEDIC RADIOLOGIC [email or web address] (ml) Colloids volume administered ( ml) Blood Product volume administered (ml) Total IV fluid infused 500 12/02/24 09:53 ORTHOPEDIC RADIOLOGIC [email or web address] Anesthesia Postop Eval I: Summary Notes Anesthesia Complication No 12/02/24 09:53 ORTHOPEDIC RADIOLOGIC [email or web address] Anesthesia Complication Comment: Post-operative progress note Anesthesia: Postop Eval II Evaluation Mental status: Awake and Calm Pain Level: 2 nausea: No Vomiting: No Complications Anesthesia Complication: No
--- NOTE | 2024-12-02 17:26 | PCM.OPRPT ---
Operative Report (Standard) Operative Information Date of Procedure: 12/02/24 Pre-Operative Diagnosis: Left ulnar artery aneurysm Post-Operative Diagnosis: Same Surgery/Procedure Performed: Left upper extremity angiogram via brachial access with direct cutdown dirt bike mechanic: Yes Fire Apparatus Sprinkler Inspector: Jeni Mullins Tasks completed by certified surgical first assistant: Closing, Hemostasis: Electrocautery and Retracting Type of Anesthesia: Local MAC, Local and MAC RN Documented Start/Stop Times: Operation Date: 12/02/24 07:15 Case Time Into Pre-Op 12/02/24 05:35 Out of Pre-Op 12/02/24 07:21 Into Recovery 12/02/24 09:45 Out of Recovery 12/02/24 12:21 Into Phase II Recovery 12/02/24 12:23 Out of Phase II 12/02/24 13:55 Procedure Start Time: 08:15 Procedure Stop Time: 09:30 Select all DRAINS/GRAFTS/IMPLANTS that apply: None Estimated Blood Loss: 8 Specimen collected: No Description of surgery: HPI: Patient is a 69-year-old male with 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 He has physical exam that suggest he has incomplete palmar arches with majority of perfusion of the hand from the ulnar source. He previously underwent attempted angiography with percutaneous access which was not successful due to his arch anatomy and significant difficulties in positioning the patient due to his body habitus and musculoskeletal comorbidities. He presents now for unilateral angiography of the left upper extremity via brachial cutdown and direct access of the brachial artery to assist in surgical planning. Description of procedure: Upon obtaining informed consent and verification of correct patient procedure site the patient was taken to the [facility] where he was positioned prepped and draped in usual sterile fashion. Timeout was performed moderate sedation administered by anesthesia. The skin overlying the brachial artery in the distal upper arm was anesthetized with 1% lidocaine and transverse incision made. Bovie electrocautery was used dissect through the subcutaneous tissue and self-retaining retractors put in position. Further dissection was then carried down to the fascia which was incised and self-retaining retractors moved deeper into the wound. Sharp dissection was then used to mobilize the brachial artery with care taken to identify and protect adjacent nerve and vein structures. A right angle was used to place vessel loop proximal and distal and the patient was then heparinized and allowed to circulate for 3 minutes. Given the depth of the vessel a counter puncture in the skin more proximal in the upper arm was felt to be the best approach angle so skin at this location was anesthetized with 1% lidocaine. The skin was encountered punctured with a micropuncture needle and advanced to engage the brachial artery between the 2 Vesseloops and access the vessel. Through this a micropuncture wire was advanced and the micropuncture needle exchanged for micropuncture sheath. Through this hand-injection angiography of the left upper extremity was performed which revealed satisfactory positioning with no extravasation or dissection. Given the length of tissue needing to be traversed by the micropuncture sheath that did not have adequate length to reach the radial and ulnar arteries for selective cannulation. Through the micropuncture sheath an angled Glidewire was advanced navigated into the ulnar artery. The micropuncture sheath was then exchanged for a short Kumpe catheter and advanced to the mid ulnar artery. From this position multiple hand-injection subtraction angiography views were obtained of the forearm and hand vasculature which confirmed the existence and location of the ulnar artery aneurysm with significant vessel tortuosity proximal to this. There was a complete superficial palmar arch which was small in caliber communicating to the radial artery and an incomplete deep palmar arch which appeared to give rise to the digit vessels for digits 2 through 5. The catheter was then drawn back into the brachial artery and using the angled Glidewire we selectively cannulated the radial artery advancing the catheter into the mid forearm. Further hand-injection subtraction angiography views of the forearm and hand were obtained via the radial inflow. This confirmed that the radial artery did communicate with the ulnar artery via the superficial palmar arch and that the digital vessels for the majority of the digits came off of the ulnar side of this communication. Upon compression of the ulnar artery injection into the radial artery there was adequate filling of the palmar arch into the ulnar distribution and ultimately filling of the digit vessels. After adequate images were obtained the catheter withdrawn and the vessel occluded with Vesseloops. A 6-0 Prolene U-stitch was then placed and secured after which the Vesseloops were released and satisfactory stasis was noted. There was a triphasic signal in the ulnar artery proximal to and distal to the repair site. The incision was then closed with 3-0 Vicryl, 4 Monocryl with interrupted nylon suture for additional support and Dermabond for the skin. The patient was then awakened from sedation taken the recovery room with plan discharged to home. Surgical Findings: See above Complications Complications: No
== END 2024-12-02 13:55 | disposition home or self-care (01) ==
LOC: SDC 05:26 → AC 05:27
PROVIDERS: PCP Internal Medicine; Referring Provider Surgery Trauma Surgery; Visit Provider Surgery Trauma Surgery
DX: I72.1 Aneurysm of artery of upper extremity (principal); E11.9 Type 2 diabetes mellitus without complications; I73.89 Other specified peripheral vascular diseases; E78.5 Hyperlipidemia, unspecified; I10 Essential (primary) hypertension; F17.290 Nicotine dependence, other tobacco product, uncomplicated; Z79.899 Other long term (current) drug therapy; Z79.84 Long term (current) use of oral hypoglycemic drugs; Z79.85 Long-term (current) use of injectable non-insulin antidiabetic drugs; Z86.16 Personal history of COVID-19
CPT/HCPCS: 00880; 36245; 75710; 82962; C1894; Q9967; C1769; J2405

== ENCOUNTER → 2025-04-27 | Outpatient (CLI) | payer MEDICARE, SELFPAY ==
[2025-04-27 14:50] LABS: Barbiturate Urine NEGATIVE (< 200 ng/mL); Benzodiazepine Urine NEGATIVE (< 200 ng/mL); PCP Urine NEGATIVE (< 25 ng/mL); THC Urine NEGATIVE (< 50 ng/mL)
== END | disposition home or self-care (01) ==
LOC: LAB 11:17
PROVIDERS: PCP Internal Medicine; Referring Provider Anesthesiology Pain Medicine; Visit Provider Anesthesiology Pain Medicine
DX: F11.20 Opioid dependence, uncomplicated (principal)
CPT/HCPCS: 80307

== ENCOUNTER → 2025-05-08 | Outpatient (CLI) | payer MEDICARE, SELFPAY ==
[2025-05-08 12:40] LABS: Hematocrit 45.6 % (40-54); Hemoglobin 14.9 g/dL (13.0-16.5); Immature Granulocytes Count 0.050 X10^3/uL (0.0-0.0); Mean Corp Hgb Conc 32.7 g/dL (32-36); Mean Corpuscular Volume 97.2 fL (80-94); Mean Platelet Vol. 9.5 fl (6.2-12.0); NRBC Flagged by Analyzer 0 % (0-5); Platelet Count 255 K/mm3 (150-450); RBC Distribution Width CV 15.5 % (11.6-14.6); RBC Distribution Width SD 54.8 fl (35.1-43.9); Red Blood Count 4.69 M/mm3 (4.6-6.2); White Blood Count 12.8 K/mm3 (4.4-11.0)
[2025-05-08 13:20] LABS: AST(SGOT) 27 U/L (<=37); Alanine Aminotransfer ALT/SGPT 35 U/L (<=46); Albumin, Serum 3.8 g/dL (3.4-4.8); Alkaline Phosphatase 122 U/L (40-129); Anion Gap 14 (5-15); BUN 29 mg/dL (4-19); BUN/Creat Ratio 22.7 RATIO (10-20); Calcium,Total 9.9 mg/dL (7.6-11.0); Carbon Dioxide 20.0 mmol/L (21.0-32.0); Chloride 105 mmol/L (98-108); Globulin 3.3 g/dL (2.2-4.2); Glucose 134 mg/dL (70-99); Potassium 4.1 mmol/L (3.3-5.1)
[2025-05-08 13:54] LABS: Creatinine, Urine (random) 187.00 mg/dL (39.00-259.00)
[2025-05-08 14:06] LABS: Microalbumin,Random Urine 488.0 mg/L (<20 mg/L)
== END | disposition home or self-care (01) ==
LOC: LAB 12:10
PROVIDERS: PCP Internal Medicine; Referring Provider Internal Medicine; Visit Provider Internal Medicine
DX: E11.9 Type 2 diabetes mellitus without complications (principal); E03.9 Hypothyroidism, unspecified
CPT/HCPCS: 36415; 80053; 82043; 82570; 84443; 85025